=== PATIENT | female | born 1995 | race Caucasian/White ===

== ENCOUNTER 2017-10-08 08:31 | Emergency (ER) | payer BC, SELFPAY ==
[2017-10-08 08:32] VITALS: BP 156/79; PULSE 82; RESP 18; TEMP 36.6; O2SAT 100; BMI 39.5
--- NOTE | 2017-10-08 08:48 | CT_ITS ---
STUDY: CT ABDOMEN AND PELVIS WITH CONTRAST REASON FOR EXAM: Female, 22 years old. Umbilical pain. RADIATION DOSAGE (If Supplied By Facility): CTDIvol = ( 18.03 ) mGy, DLP = ( 1300.32 ) mGycm TECHNIQUE: Transaxial images were obtained from the dome of the diaphragm to the symphysis pubis without oral contrast. 100ml ml of Isovue 300 contrast was administered. Sagittal and coronal images were reconstructed. Individualized dose optimization techniques were used for this CT. COMPARISON: None. FINDINGS: Body wall soft tissues: No acute process. Osseous structures: No acute process. Inferior chest: No acute process. Hepatobiliary: Normal. Pancreas: No acute process. Spleen: Normal. Adrenal glands: Normal. Urogenital: Normal kidneys, symmetric nephrograms. Normal collecting systems, ureters, urinary bladder. Normal anteverted uterus and endometrial stripe. Normal ovaries and adnexa with no cul-de-sac free fluid. Pelvic floor and sidewalls and retroperitoneum: No mass or adenopathy. Vasculature: No acute process. Stomach: No acute process. Small bowel and mesentery: No acute process. Large bowel: No acute process. The appendix is well seen and normal. Free fluid or free air: None. CT/Abdomen/Pelvis W IV Cont ONLY IMPRESSION: Normal enhanced CT of the abdomen and pelvis. Electronically Signed: Alberto Pena, at 10:35 EDT Tel , Service support ,
--- NOTE | 2017-10-08 08:51 | ED.VISSUMM ---
- ER Visit Summary Date of Service: 10/08/17 Chief Complaint: [Abdominal pain] History of Present Illness: The patient is a 22 F [who presents the emergency department with abdominal pain. It started 2 weeks ago. It was worse with bending over and with movement. It is gradually worsened and has been constant since yesterday and she has had bloody drainage from her bellybutton. No fevers or chills no nausea or vomiting bowel movements have been normal. She has had no abdominal surgeries. She denies the possibility of and her last menstrual cycle was September 13 - September 17. She denies any urinary symptoms or vaginal discharge. She has a history of constipation and that is common and unchanged.] Physical Examination: [] WN WD NAD PERRL EOMI MMM NECK supple and nontender, no masses RRR no murmur rub or gallop, no peripheral edema, symmetric radial pulses CTAB no respiratory distress ABDOMEN is soft she has tenderness in the bilateral lower quadrants that is referred to the umbilicus there is purulent slightly bloody drainage from the umbilicus no surrounding erythema or swelling I am unable to appreciate where the purulence is coming from, normal bowel sounds, no distension, no rebound or guarding SKIN is warm and dry no rashes Alert and Oriented x3, CN II-XII in tact, no motor or sensory deficits, gait normal No lymphadenopathy Test Results: [] Emergency Department Course and Treatment: [Screening labs were obtained and CT with IV contrast was ordered to evaluate for deeper abscess or fistula. CT shows no evidence of abscess or fistula. Blood work was unremarkable. Patient will be treated with Bactrim and Keflex for an infection of the umbilicus soft tissue.] Treatment Plan: [] Disposition: [Discharge] Impression: [1. Umbilical local soft tissue infection] This note was generated with [employer] dictation software. It may contain incorrect words, spelling, and punctuation that were not noted in review of the chart prior to signing ED Disposition - Plan for ED Patient: Chief Complaint: Abd Pain Referrals: NOT,DEFINED [NON-STAFF] -
[2017-10-08] MEDS: 0.9% Normal Saline 1,000 ML 1000 ML IV (09:09)
[2017-10-08] MEDS: Morphine 4 MG/ML Syringe IV (09:09)
[2017-10-08 09:26] LABS: Absolute Lymphocyte Count 2.31 X10^3/ul (0.83-4.51); Absolute Neutrophil Count 6.7 X10^3/uL (2.0-7.7); Basophil# 0.07 X10^3/uL; Basophil% 0.7 % (0-1); Eosinophil# 0.38 X10^3/uL; Eosinophils% 3.6 % (0-5); Hematocrit 40.8 % (37-47); Hemoglobin 13.8 g/dl (12.0-15.0); Lymphocyte # 2.31 X10^3/ul (4.0); Lymphocyte % 21.8 % (19-41); Mean Corp Hgb Conc 33.8 g/gl (32-36); Mean Corpuscular Volume 82.9 fL (81-99); Mean Platelet Vol. 9.5 fl (6.2-12.0); Monocyte# 1.09 X10^3/uL; Monocyte% 10.3 % (0-10); Neutrophil # 6.73 X10^3/uL (2.7-7.7); Neutrophil % 63.4 % (47-70); POSITIVE COUNT NO; POSITIVE DIFFERENTIAL NO; POSITIVE MORPHOLOGY NO; Platelet Count 301 K/mm3 (150-450); RBC Distribution Width CV 13.5 % (11.6-14.6); RBC Distribution Width SD 40.3 fl (35.1-43.9); Red Blood Count 4.92 M/mm3 (4.2-5.4); White Blood Count 10.6 K/mm3 (4.4-11.0)
[2017-10-08 09:44] LABS: Bacteria 0 SEEN /hpf (None Seen); Mucous, Urine 0 SEEN /hpf (<or=2+); Red Blood Cells-Urine 0 SEEN /hpf (0-5); White Blood Cells 0 SEEN /hpf (0-5)
[2017-10-08 09:45] LABS: AST(SGOT) 12 U/L (15-37); Alanine Aminotransfer ALT/SGPT 23 U/L (13-56); Albumin, Serum 3.7 g/dL (3.2-5.0); Alkaline Phosphatase 155 U/L (45-117); Anion Gap 6 (5-15); BUN 20 mg/dL (7-18); BUN/Creat Ratio 27.3 RATIO (10-20); Calcium,Total 8.6 mg/dL (8.5-10.1); Chloride 107 mmol/L (98-107); Creatinine, Serum 0.73 mg/dL (0.55-1.02); EST Glomerular Filtration Rate 104 mL/min (>60); Est Glom Filt Rate - Afr Amer 126 mL/min (>60); Estimated Creatinine Clearance 120.91 ml/min; Globulin 3.8 g/dL (2.2-4.2); Glucose 83 mg/dL (74-106); Lipase 63 U/L (73-393); Potassium 3.6 mmol/L (3.5-5.1); Protein, Total 7.5 g/dL (6.4-8.2); Sodium Level 142 mmol/L (136-145)
[2017-10-08 09:46] LABS: Color, Urine Yellow (Yellow); Glucose, Dipstick Normal (Normal); Ketone-Dipstick 5 mg/dl (Negative); Leukocyte Esterase-Dipstick Negative /ul (Negative); Nitrite-Dipstick Negative (Negative); Occult Blood-Urine 10 /ul (Negative); Protein-Dipstick 15 mg/dl (Negative); Specific Gravity, Urine 1.025 (1.002-1.030); Urine Bilirubin Dipstick Negative (Negative); Urine Clarity Clear (Clear); Urine Urobilinogen Normal (Normal)
[2017-10-08 09:50] LABS: Internal QC Validated? YES +Cl - CLEAR BKGD; Pregnancy, Urine Negative Negative
[2017-10-08 09:55] LABS: Squamous Epithelial Cells - UA 0-5 SEEN /hpf (5-10)
--- NOTE | 2017-10-08 10:42 | ED.DEP ---
ED Disposition - Plan for ED Patient: Chief Complaint: Abd Pain Instructions: ED Infec Skin Cellulitis Prescriptions: Cephalexin [Keflex] 500 mg PO Q6 #40 capsule Smz/Tmp Ds [Bactrim Ds] 1 tablet PO BID #20 tablet Referrals: Lamin Olmos DO [STAFF PHYSICIAN] - 3-5 Days
[2017-10-08] MEDS: Cephalexin 250 MG Capsule 500 MG PO (10:54)
[2017-10-08] MEDS: Smz/Tmp Ds Tablet 1 TABLET PO (10:54)
[2017-10-08 11:11] VITALS: BP 142/69; PULSE 84; RESP 19; O2SAT 100
== END 2017-10-08 11:12 | disposition home or self-care (01) ==
PROVIDERS: Emergency Provider Emergency Medicine
DX: L08.9 Local infection of the skin and subcutaneous tissue, unspecified (principal); K59.00 Constipation, unspecified; E66.9 Obesity, unspecified
CPT/HCPCS: 74177; 80053; 81001; 81025; 83690; 85025; 87070; 87205; 96361; 96374; 99284; J7030; Q9967

== ENCOUNTER → 2017-12-30 07:51 | Outpatient (CLI) | payer BC, SELFPAY ==
--- NOTE | 2017-12-30 07:53 | US_ITS ---
STUDY: THYROID ULTRASOUND REASON FOR EXAM: Female, 22 years old. Thyromegaly TECHNIQUE: Ultrasound evaluation of the thyroid was performed with real-time and static baltazar-scale imaging. # of Images: 48 COMPARISON: None. FINDINGS: RIGHT LOBE: The right lobe of the thyroid gland measures 5.4 x 2.6 x 2.1 cm. There is a 82 echotexture. There are no demonstrated solid, cystic or complex lesions. LEFT LOBE: The left lobe of the thyroid gland measures 5.3 x 2.7 x 2.1 cm. There is a heterogeneous echotexture. There are no demonstrated solid, cystic or complex lesions. ISTHMUS: The isthmus measures 7 mm . The regional lymph nodes are normal. US/Thyroid IMPRESSION: Slightly enlarged thyroid gland, diffusely heterogeneous which can be seen with chronic thyroiditis. No significant nodules. Electronically Signed: Owen Lopez MD at 16:23 EDT , Service support ,
== END ==
PROVIDERS: Family Provider Internal Medicine; PCP Internal Medicine; Referring Provider Internal Medicine; Visit Provider Internal Medicine
DX: E01.0 Iodine-deficiency related diffuse (endemic) goiter (principal)
CPT/HCPCS: 76536

== ENCOUNTER 2020-02-09 09:27 | Emergency (ER) | payer BC, SELFPAY ==
[2020-02-09 09:29] VITALS: BP 158/94; PULSE 75; RESP 18; TEMP 36.3; O2SAT 99; BMI 44.8
[2020-02-09 10:39] LABS: hCG Titer Quant., Serum < 1 mIU/mL (1-3)
--- NOTE | 2020-02-09 11:59 | ED.DCSUM_ITS ---
History of Present Illness Chief Complaint: Vag Bld, Preg Detail of Chief Complaint: Home test, vaginal bleeding and cramping pain Onset: Today Context: Sudden Onset Timing: Continuous Quality: Cramping pain pelvic area Current Severity: Mild Maximum Severity: Mild Worsened by: Nothing Relieved by: Nothing Associated Symptoms: No associated symptoms Narrative: Patient is a 24-year-old G0, P0 female who had a home test that was positive a couple of days ago. Her last normal menstrual period was January 03 through January 08. She is sexually active. She does not use any form of control. She does not know her blood type. Significant other/'s blood type is B+. She denies lightheadedness. She denies urinary symptoms. She is on no medications. She states she does not have an ALTERNATIVE MEDICINE PRACTITIONER. She does have allergy to Bactrim. Prior similar symptoms: No Recent Illness/Hospitalization: No - Past Medical History (1) No significant past medical history Status: Acute Past Medical History - Allergies and Home Meds Allergies/Adverse Reactions: Allergies No Known Allergies Allergy (Verified 02/09/20 09:28) Primary Care Physician: Ernesto Dc MD [Primary Care Provider] - Prior records reviewed: No - No history of endometriosis, STI or cysts Surgical History: no surgical history Lives: Spouse/ Significant Other Smoking Status: Never smoker Alcohol: None Drugs: None Review of Systems General: Denies: Chills, Fever, Malaise ENT: Denies: Bilateral ear pain, Rhinorrhea, Sore throat Cardiovascular: Denies: Chest pain, Palpitations Respiratory: Denies: Dyspnea, Cough, Dyspnea on exertion Gastrointestinal: Reports: Abdominal pain. Denies: Nausea, Vomiting, Diarrhea Genitourinary: Denies: Dysuria, Hematuria, Frequency Musculoskeletal: Denies: Myalgias, Arthralgias, Neck pain, Back pain, Extremity Pain Skin: Denies: Rash, Wounds Neurological: Denies: Headache, Weakness Endocrine: Denies: Polyuria, Polydipsia Hematologic: Denies: Easy bruising, Easy bleeding Physical Exam Vital Signs/Narrative: Vital Signs Temp Pulse Resp BP Pulse Ox 02/09/20 09:29 97.3 F L 75 18 158/94 H 99 Inital Vital Signs reviewed: Yes General: Well nourished, Well developed, No Acute Distress Head: Normocephalic, Atraumatic Eyes: Perrl, EOMI ENT: Moist mucous membranes, No rhinorrhea Neck: Supple, Nontender Cardiovascular: Regular rate, Regular rhythm, No murmurs Respiratory: No distress, CTA bilaterally, Chest nontender Abdomen: Soft, Nontender, Nondistended, Normal bowel sounds, No masses : - - Sternal genitalia normal. Vaginal cervical mucosa normal. There is minimal amount of blood in the vaginal vault. The appearance of the cervix is consistent with a nonparous cervix. There is no enlargement of the uterus. There is no cervical motion tenderness. There is no adnexal mass, fullness Back: Nontender, Normal Inspection Extremities: Nontender, No edema Skin: Normal color, No rash Neurological: Alert, Oriented x3, Cranial nerves II-XII grossly intact, Normal Strength, Normal Sensation Psychological: Normal affect, Normal Mood Diagnostic/Tx/Re-eval Laboratory Results 02/09/20 02/09/20 10:03 10:03 HCG, Quant < 1 Blood Type O POSITIVE hCG is less than 1. Patient was informed that her home test may represent a false negative. - Medical Decision Making Quantitative hCG was obtained. Based on patient's dates she is at most 2 to 3 weeks gestation. Will obtain ABO Rh. Pelvic ultrasound. Prior to patient going for pelvic ultrasound the quantitative hCG returned at less than 1. Nurse is aware that a pelvic exam needs to be performed. There may be other reasons for her vaginal bleeding. With a negative quantitative hCG and a normal pelvic exam imaging was canceled. Patient was discharged with referral to ALTERNATIVE MEDICINE PRACTITIONER since she does not have an ALTERNATIVE MEDICINE PRACTITIONER. ED Disposition - Plan for ED Patient: Disposition: Home or Assisted Living Diagnosis: Abnormal vaginal bleeding Instructions: ED Bleed Irregular Vaginal Referrals: Ernesto Dc MD [Primary Care Provider] - Radha Wilkinson DO [STAFF PHYSICIAN] - 1 Week if not improving
[2020-02-09 13:12] VITALS: BP 148/90; PULSE 78; RESP 18; O2SAT 99
== END 2020-02-09 13:25 | disposition home or self-care (01) ==
PROVIDERS: Emergency Provider Emergency Medicine; PCP Family Medicine
DX: O20.9 Hemorrhage in early pregnancy, unspecified (principal); Z3A.00 Weeks of gestation of pregnancy not specified
CPT/HCPCS: 84702; 86900; 86901; 99283; A4216

== ENCOUNTER → 2020-03-13 08:58 | Outpatient (CLI) | payer BC, SELFPAY ==
[2020-03-13 10:59] LABS: Absolute Lymphocyte Count 2.05 X10^3/uL (0.83-4.51); Absolute Neutrophil Count 4.2 X10^3/uL (2.0-7.7); Basophil# 0.07 X10^3/uL; Eosinophil# 0.34 X10^3/uL; Eosinophils% 4.8 % (0-5); Hematocrit 43.9 % (37-47); Hemoglobin 13.7 g/dL (12.0-15.0); Lymphocyte # 2.05 X10^3/ul (4.0); Lymphocyte % 28.8 % (19-41); Mean Corp Hgb Conc 31.2 g/dL (32-36); Mean Corpuscular Hgb 26.1 pg (27.0-32.0); Mean Corpuscular Volume 83.6 fL (81-99); Mean Platelet Vol. 9.9 fl (6.2-12.0); Monocyte# 0.44 X10^3/uL; Monocyte% 6.2 % (0-10); NRBC Flagged by Analyzer 0 % (0-5); Neutrophil # 4.21 X10^3/uL (2.7-7.7); Neutrophil % 58.9 % (47-70); Platelet Count 329 K/mm3 (150-450); RBC Distribution Width CV 12.9 % (11.6-14.6); RBC Distribution Width SD 39.1 fl (35.1-43.9); Red Blood Count 5.25 M/mm3 (4.2-5.4); White Blood Count 7.1 K/mm3 (4.4-11.0)
[2020-03-13 11:02] LABS: ALB/GLOB Ratio 0.9 RATIO (0.9-2.4); AST(SGOT) 8 U/L (15-37); Alanine Aminotransfer ALT/SGPT 23 U/L (13-56); Albumin, Serum 3.5 g/dL (3.2-5.0); Alkaline Phosphatase 148 U/L (45-117); Anion Gap 6 (5-15); BUN 11 mg/dL (7-18); BUN/Creat Ratio 15.7 RATIO (10-20); Calcium,Total 8.7 mg/dL (8.5-10.1); Chloride 108 mmol/L (98-107); Cholesterol 194 mg/dL (200); EST Glomerular Filtration Rate 108 mL/min (>60); Est Glom Filt Rate - Afr Amer 130 mL/min (>60); Globulin 4.1 g/dL (2.2-4.2); Glucose 95 mg/dL (74-106); High Density Lipoprotein 37 mg/dL; Protein, Total 7.6 g/dL (6.4-8.2); Sodium Level 138 mmol/L (136-145); T4 Free Direct 1.24 ng/dL (0.76-1.46); Thyroid Stim Hormone (TSH) 1.51 uIU/mL (0.358-3.74); Triglycerides 109 mg/dL; Very Low Density Lipoprotein 22 mg/dL (5-40)
[2020-03-27 20:08] LABS: Thyroid Stim Immunoglob 2.34 IU/L (0.00-0.55)
[2020-03-27 20:41] LABS: Anti-Thyroglobulin AB 8.3 IU/mL (0.0-0.9); Thyroglobulin RIA 36 ng/mL (.); Thyroid Peroxidase AB 335 IU/mL (0-34)
== END ==
PROVIDERS: PCP Family Medicine; Visit Provider Family Medicine
DX: E66.01 Morbid (severe) obesity due to excess calories (principal); Z86.39 Personal history of other endocrine, nutritional and metabolic disease
CPT/HCPCS: 36415; 80053; 80061; 84432; 84439; 84443; 84445; 85025; 86376; 86800

== ENCOUNTER → 2020-03-21 07:51 | Outpatient (CLI) | payer BC, SELFPAY ==
--- NOTE | 2020-03-21 08:01 | US_ITS ---
STUDY: THYROID ULTRASOUND REASON FOR EXAM: Female, 24 years old. Thyromegaly TECHNIQUE: Ultrasound evaluation of the thyroid was performed with real-time and static baltazar-scale imaging. COMPARISON: None. FINDINGS: RIGHT LOBE: The right lobe of the thyroid gland is enlarged and measures 6.1 cm x 2.7 cm x 2.8 cm. There is a heterogeneous echotexture. There are no demonstrated solid, cystic or complex lesions. LEFT LOBE: The left lobe of the thyroid gland is enlarged and measures 6.2 cm x 2.4 cm x 2.0 cm. There is a heterogeneous echotexture. There is an 8 mm x 7 mm x 5 mm hypoechoic solid nodule in the midpole of the left lobe. There are nodular vascularity is seen. ISTHMUS: The isthmus measures 8 mm. There is a 1.1 cm x 1.4 cm x 0.8 cm hypoechoic solid nodule along the left side of the isthmus. Incidental note is made of a 1.7 cm x 0.6 cm x 0.5 cm right cervical lymph node. US/Thyroid IMPRESSION: Heterogeneous enlargement of both lobes of the thyroid gland. 8 mm x 7 mm x 5 mm solid nodule in the midpole of the left lobe of the thyroid. Enlargement of the isthmus with a solid nodule along the left side of the isthmus. Electronically Signed: Manuel Stubbs, at 13:49 EST , Service support ,
== END ==
PROVIDERS: PCP Family Medicine; Referring Provider Family Medicine; Visit Provider Family Medicine
DX: E01.0 Iodine-deficiency related diffuse (endemic) goiter (principal)
CPT/HCPCS: 76536

== ENCOUNTER → 2020-04-04 12:03 | Outpatient (CLI) | payer BC, SELFPAY ==
--- NOTE | 2020-04-04 08:00 | ASPS_PTH ---
PATIENT: JOHNIE MCCALL LOC: [facility] U#:[id number] AGE/SX: 29/F ROOM: RE04/04/[address]: Dr. Peewee Horn MD : 1995 BED: DIS: SPEC #: [id number] RECD: 04/04/20 11:53 STATUS: MANUEL REPark #: [id number] MARY: 04/04/20 08:[address]: Peewee Horn DEPT: CYTOLOGY RECD BY: Shanae Camarena ENTERED: 04/04/20 12:24 SP TYPE: ASPIRATION OTHR DR: Dr. Ernesto Dc MD Tissues: Thyroid isthmus Procedures: Special Stain Group II Cytology Other HEADER OPERATION: Isthmus biopsy PRE-OP DIAGNOSIS: Multiple thyroid nodules TISSUE SUBMITTED: Isthmus slides x6 DIAGNOSIS CYTOLOGY Fine needle aspiration, thyroid isthmus (smears): Rare benign follicular cells Polymorphic lymphocytes present. See comment. AM:yves 04/05/2020 COMMENT Only very rare benign follicular cells are identified. The specimen primarily consists of polymorphic lymphocytes. The differential diagnosis includes chronic inflammation of thyroid gland versus lymph node tissue. Clinical correlation is suggested. Case has been reviewed in consultation with Dr. Carlson who concurs with the above diagnosis. IDC:SJ CYTOLOGY STUDY Slides are reviewed. CYTOLOGY GROSS Received are six smears labeled with the patient's name and designated per the requisition as isthmus. Submitted for staining. / yves 04/04/2020 TC:5 CPT: 25930
[2020-04-04 08:41] VITALS: BMI 45.6
== END ==
PROVIDERS: PCP Family Medicine; Referring Provider Surgery; Visit Provider Surgery
DX: E04.1 Nontoxic single thyroid nodule (principal)
CPT/HCPCS: 88161; 88313

== ENCOUNTER → 2020-05-13 16:28 | Outpatient (CLI) | payer BC, SELFPAY ==
[2020-04-04 08:41] VITALS: BMI 45.6
== END ==
LOC: MFPLAB 16:29 → LABSPEC 16:30
PROVIDERS: PCP Family Medicine; Referring Provider Family Medicine; Visit Provider Family Medicine
DX: U07.1 COVID-19 (principal)
CPT/HCPCS: 87635; U0005; U0003

== ENCOUNTER → 2020-07-19 10:57 | Outpatient (CLI) | payer BC, SELFPAY ==
[2020-07-19 10:07] VITALS: BMI 45.6
[2020-07-19 12:20] LABS: Hemoglobin A1c 5.6 % (3.8-5.6)
[2020-07-19 13:59] LABS: ALB/GLOB Ratio 0.9 RATIO (0.9-2.4); AST(SGOT) 21 U/L (15-37); Alanine Aminotransfer ALT/SGPT 41 U/L (13-56); Albumin, Serum 3.3 g/dL (3.2-5.0); Alkaline Phosphatase 116 U/L (45-117); Anion Gap 6 (5-15); BUN 14 mg/dL (7-18); BUN/Creat Ratio 20.1 RATIO (10-20); Calcium,Total 8.8 mg/dL (8.5-10.1); Chloride 108 mmol/L (98-107); Cholesterol 143 mg/dL (200); EST Glomerular Filtration Rate 108 mL/min (>60); Est Glom Filt Rate - Afr Amer 131 mL/min (>60); Estradiol 81.6 pg/mL; Follicle Stimulating Hormone 4.2 mIU/mL; Globulin 3.8 g/dL (2.2-4.2); Glucose 103 mg/dL (74-106); High Density Lipoprotein 29 mg/dL; Luteinizing Hormone 8.7 mIU/mL; Potassium 3.7 mmol/L (3.5-5.1); Prolactin 22.8 ng/mL; Protein, Total 7.1 g/dL (6.4-8.2); Sodium Level 139 mmol/L (136-145); T4 Free Direct 1.48 ng/dL (0.76-1.46); Thyroid Stim Hormone (TSH) 1.57 uIU/mL (0.358-3.74); Triglycerides 160 mg/dL; Very Low Density Lipoprotein 32 mg/dL (5-40)
[2020-07-24 09:08] LABS: Testosterone, % Free 1.96 % (0.50-2.80); Testosterone, Free 0.67 ng/dL (0.10-0.85)
[2020-07-24 12:28] LABS: Testosterone, Total 34 ng/dL (8-48)
[2020-07-24 12:44] LABS: 17-Hydroxyprogesterone 101 ng/dL (.)
== END ==
PROVIDERS: PCP Family Medicine; Referring Provider Internal Medicine Endocrinology, Diabetes & Metabolism; Visit Provider Internal Medicine Endocrinology, Diabetes & Metabolism
DX: E06.3 Autoimmune thyroiditis (principal); E28.2 Polycystic ovarian syndrome; R73.9 Hyperglycemia, unspecified
CPT/HCPCS: 36415; 80053; 80061; 82627; 82670; 83001; 83002; 83036; 83498; 84146; 84402; 84403; 84439; 84443; 82626

== ENCOUNTER → 2020-10-25 | Outpatient (CLI) | payer BC, SELFPAY ==
[2020-07-19 10:07] VITALS: BMI 45.6
[2020-10-29 05:07] LABS: Chlamydia By Nucleic Acid AMP Negative (Negative)
[2020-10-30 11:28] LABS: HPV Reflexed? NOT INDICATED
[2020-10-30 11:29] LABS: Gonococcus By Nucleic Acid AMP Negative (Negative)
== END | disposition home or self-care (01) ==
LOC: LABSPEC 11:09
PROVIDERS: PCP Family Medicine; Visit Provider Obstetrics & Gynecology
DX: Z11.3 Encounter for screening for infections with a predominantly sexual mode of transmission (principal); Z12.4 Encounter for screening for malignant neoplasm of cervix
CPT/HCPCS: 87491; 87591; 88175; G0145

== ENCOUNTER → 2020-11-12 12:02 | Outpatient (CLI) | payer BC, SELFPAY ==
[2020-11-12 13:35] LABS: Absolute Neutrophil Count 7.5 X10^3/uL (2.0-7.7); Basophil% 0.9 % (0-1); Eosinophil# 0.26 X10^3/uL; Eosinophils% 2.4 % (0-5); Hematocrit 38.5 % (37-47); Hemoglobin 12.8 g/dL (12.0-15.0); Lymphocyte % 20.9 % (19-41); Mean Corp Hgb Conc 33.2 g/dL (32-36); Mean Corpuscular Hgb 26.9 pg (27.0-32.0); Mean Corpuscular Volume 81.1 fL (81-99); Mean Platelet Vol. 10.1 fl (6.2-12.0); Monocyte# 0.81 X10^3/uL; Monocyte% 7.4 % (0-10); NRBC Flagged by Analyzer 0 % (0-5); Neutrophil # 7.48 X10^3/uL (2.7-7.7); Neutrophil % 68.1 % (47-70); Platelet Count 326 K/mm3 (150-450); RBC Distribution Width CV 13.2 % (11.6-14.6); RBC Distribution Width SD 38.6 fl (35.1-43.9); Red Blood Count 4.75 M/mm3 (4.2-5.4)
[2020-11-12 14:25] LABS: T4 Free Direct 1.21 ng/dL (0.76-1.46); Thyroid Stim Hormone (TSH) 1.32 uIU/mL (0.358-3.74)
[2020-11-12 14:53] LABS: HIV - WCH Non-Reactive (Nonreactive); Hepatitis B Surface Antigen Non-Reactive (Nonreactive); Hepatitis C Antibody Non-Reactive (Nonreactive); Rubella IgG Reactive (Nonreactive); Syphilis Antibodies Non-reactive
== END ==
PROVIDERS: PCP Family Medicine; Visit Provider Obstetrics & Gynecology
DX: Z34.81 Encounter for supervision of other normal pregnancy, first trimester (principal)
CPT/HCPCS: 36415; 84439; 84443; 85025; 86703; 86762; 86780; 86803; 87077; 87086; 87088; 87186; 87340

== ENCOUNTER → 2020-12-04 12:07 | Outpatient (CLI) | payer BC, SELFPAY | PROVIDERS: PCP Family Medicine; Referring Provider Obstetrics & Gynecology; Visit Provider Obstetrics & Gynecology | DX: Z03.818 Encounter for observation for suspected exposure to other biological agents ruled out (principal) | CPT/HCPCS: 87635; C9803; U0005; U0003 ==

== ENCOUNTER → 2020-12-13 11:04 | Outpatient (CLI) | payer BC, SELFPAY | PROVIDERS: PCP Family Medicine; Visit Provider Obstetrics & Gynecology | DX: G12.9 Spinal muscular atrophy, unspecified (principal); Z14.1 Cystic fibrosis carrier | CPT/HCPCS: 36415 ==

== ENCOUNTER → 2021-02-21 10:17 | Outpatient (CLI) | payer BC, SELFPAY ==
[2021-02-21 11:31] LABS: Hematocrit 35.3 % (37-47); Hemoglobin 12.1 g/dL (12.0-15.0); Mean Corp Hgb Conc 34.3 g/dL (32-36); Mean Corpuscular Hgb 28.9 pg (27.0-32.0); Mean Corpuscular Volume 84.2 fL (81-99); Mean Platelet Vol. 9.9 fl (6.2-12.0); Platelet Count 330 K/mm3 (150-450); RBC Distribution Width CV 13.8 % (11.6-14.6); RBC Distribution Width SD 41.9 fl (35.1-43.9); Red Blood Count 4.19 M/mm3 (4.2-5.4); White Blood Count 13.5 K/mm3 (4.4-11.0)
[2021-02-21 12:12] LABS: Glucose Challenge Gest 1H 50g 149 mg/dL (70-140); T4 Free Direct 1.03 ng/dL (0.76-1.46); Thyroid Stim Hormone (TSH) 0.75 uIU/mL (0.358-3.74)
== END ==
PROVIDERS: PCP Family Medicine; Visit Provider Obstetrics & Gynecology
DX: Z34.82 Encounter for supervision of other normal pregnancy, second trimester (principal)
CPT/HCPCS: 36415; 82950; 84439; 84443; 85027

== ENCOUNTER → 2021-02-26 08:36 | Outpatient (CLI) | payer BC, SELFPAY ==
[2021-02-26 09:27] LABS: Glucose GTT-Gestation. Fasting 99 mg/dL (<105)
[2021-02-26 10:17] LABS: Glucose GTT-Gestational 1 Hr 237 mg/dL (<190)
[2021-02-26 11:23] LABS: Glucose GTT-Gestational 2 Hr 216 mg/dL (<165)
== END ==
PROVIDERS: PCP Family Medicine; Visit Provider Obstetrics & Gynecology
DX: O24.912 Unspecified diabetes mellitus in pregnancy, second trimester (principal); Z3A.00 Weeks of gestation of pregnancy not specified
CPT/HCPCS: 36415; 82951; 82952

== ENCOUNTER 2021-04-04 10:35 | Outpatient (CLI) | payer BC, SELFPAY ==
[2021-04-04 11:55] LABS: Hematocrit 34.7 % (37-47); Hemoglobin 11.3 g/dL (12.0-15.0); Mean Corp Hgb Conc 32.6 g/dL (32-36); Mean Corpuscular Hgb 27.4 pg (27.0-32.0); Mean Corpuscular Volume 84.2 fL (81-99); Mean Platelet Vol. 10.1 fl (6.2-12.0); Platelet Count 325 K/mm3 (150-450); RBC Distribution Width CV 13.4 % (11.6-14.6); RBC Distribution Width SD 41.3 fl (35.1-43.9); Red Blood Count 4.12 M/mm3 (4.2-5.4); White Blood Count 10.2 K/mm3 (4.4-11.0)
[2021-04-04 12:02] LABS: ALB/GLOB Ratio 0.6 RATIO (0.9-2.4); AST(SGOT) 8 U/L (15-37); Alanine Aminotransfer ALT/SGPT 14 U/L (13-56); Albumin, Serum 2.6 g/dL (3.2-5.0); Alkaline Phosphatase 109 U/L (45-117); Anion Gap 8 (5-15); BUN 13 mg/dL (7-18); BUN/Creat Ratio 20.2 RATIO (10-20); Calcium,Total 9.3 mg/dL (8.5-10.1); Chloride 105 mmol/L (98-107); Creatinine, Serum 0.64 mg/dL (0.55-1.02); EST Glomerular Filtration Rate 118 mL/min (>60); Est Glom Filt Rate - Afr Amer 142 mL/min (>60); Globulin 4.2 g/dL (2.2-4.2); Glucose 113 mg/dL (74-106); Potassium 3.5 mmol/L (3.5-5.1); Protein, Total 6.8 g/dL (6.4-8.2); Sodium Level 138 mmol/L (136-145)
== END 2021-04-04 23:59 | disposition home or self-care (01) ==
PROVIDERS: PCP Family Medicine; Visit Provider Obstetrics & Gynecology
DX: O99.891 Other specified diseases and conditions complicating pregnancy (principal); R21 Rash and other nonspecific skin eruption; Z3A.00 Weeks of gestation of pregnancy not specified
CPT/HCPCS: 36415; 80053; 85027

== ENCOUNTER 2021-05-09 11:11 | Outpatient (CLI) | payer BC, SELFPAY ==
[2021-05-09 13:54] LABS: Group B Strep DNA By PCR POSITIVE (Negative); Probe Check PASS
== END 2021-05-09 23:59 | disposition home or self-care (01) ==
LOC: LABSPEC 11:13
PROVIDERS: PCP Family Medicine; Visit Provider Obstetrics & Gynecology
DX: Z36.85 Encounter for antenatal screening for Streptococcus B (principal)
CPT/HCPCS: 87653

== ENCOUNTER 2021-05-16 10:00 | Inpatient (IN) | payer BC, SELFPAY ==
[2021-05-16] VITALS (43 sets, daily range): BP systolic 128–176; BP diastolic 64–95; PULSE 71–93; RESP 14; TEMP 36.2–37.3; O2SAT 97–100; BMI 46.3
--- NOTE | 2021-05-16 10:27 | PCM.HP.BLA ---
History and Physical Date of Admission: 05/16/21 Chief complaint: Gestational hypertension History of present illness: 26-year-old G1, P0 at 37 weeks and 4 days with ERIC 06/02/2021 by LMP arrives from the office with gestational hypertension in need of induction of labor at term. Denies headache, visual changes, chest pain, shortness of breath, nausea vomiting, right upper quadrant pain. Patient states good movement. is complicated by GDM A2, gestational hypertension, GBS positive Obstetrical history: G1: Current Past medical history: GDM A2, gestational pretension Medications: Levemir 15 units every morning 10 units nightly Past surgical history: Tonsils and adenoids, wisdom teeth extraction Allergies: Bactrim Social history: Denies smoking, alcohol use, drug use Family history: Denies history DVT or PE Review of systems: Besides above pertinent positives a full review of systems was performed and found to be negative Physical exam: Vital signs: Blood pressure 148/90 General: Normal-appearing no acute distress HEENT: Normocephalic/atraumatic no cervical of adenopathy Cardiac/respiratory: No success muscles, nonlabored breathing Abdomen: Soft, nontender, nondistended Pelvic exam: Cervical exam 1 cm thick and high Extremities: No peripheral edema normal peripheral pulses, negative clonus. DTRs +2 Psych: Normal affect normal demeanor nonpressured speech Labs: Pending Assessment plan: 26-year-old G1, P0 at 37 weeks and 4 days with newly diagnosed gestational hypertension asymptomatic. Labs pending, HELLP labs ordered. Admit labor and delivery CEFM GBS positive: For penicillin Induction of labor via Cytotec 25 mcg every 4 hours vaginally Gestational hypertension: Labs pending, will continue to monitor blood pressures and treat appropriately GDM A2: We will continue to monitor blood sugars and treat appropriately Routine orders
[2021-05-16] MEDS: Lactated Ringers 1,000 ML 50 ML IV (11:05)
[2021-05-16] MEDS: Labetalol (Prefilled) 20 MG/4 ML IV (11:05)
[2021-05-16 11:24] LABS: Hematocrit 33.6 % (37-47); Hemoglobin 11.1 g/dL (12.0-15.0); Mean Corpuscular Hgb 26.5 pg (27.0-32.0); Mean Corpuscular Volume 80.2 fL (81-99); Mean Platelet Vol. 10.8 fl (6.2-12.0); Platelet Count 280 K/mm3 (150-450); RBC Distribution Width CV 13.8 % (11.6-14.6); RBC Distribution Width SD 39.9 fl (35.1-43.9); Red Blood Count 4.19 M/mm3 (4.2-5.4)
[2021-05-16] MEDS: miSOPROStol 25 MCG TABLET VAGINAL ×3 (11:53→20:19)
[2021-05-16] MEDS: Magnesium Sulfate 4gm/100mL 4 GM/100 ML IV.SOLN. IV (12:05)
[2021-05-16 12:07] LABS: AST(SGOT) 14 U/L (15-37); Alanine Aminotransfer ALT/SGPT 14 U/L (13-56); Creatinine, Serum 0.81 mg/dL (0.55-1.02); EST Glomerular Filtration Rate 90 mL/min (>60); Est Glom Filt Rate - Afr Amer 109 mL/min (>60); Estimated Creatinine Clearance 105.24 ml/min; Uric Acid 5.9 mg/dL (2.6-6.0)
--- NOTE | 2021-05-16 12:11 | PCM.PN.OB ---
Subjective Subjective Patient remains asymptomatic. Denies headache, visual changes, chest pain, shortness of breath, nausea vomiting, right upper quadrant pain. Objective Data Objective Data Vital Signs: Vital Signs Temp Pulse BP 99.0 F 81 157/86 H 05/16/21 11:48 05/16/21 12:07 05/16/21 12:07 Weight: 304 lb 14.389 oz Body Mass Index (BMI) 46.3 Lab / Micro Data Result Diagrams: 05/16/21 11:00 05/16/21 11:00 Labs: Laboratory Results - last 24 hr 05/16/21 11:00: WBC 8.0, RBC 4.19 L, Hgb 11.1 L, Hct 33.6 L, MCV 80.2 L, MCH 26.5 L, MCHC 33.0, RDW Std Deviation 39.9, RDW Coeff of Chandana 13.8, Plt Count 280, MPV 10.8 05/16/21 11:00: Creatinine 0.81, Estim Creat Clear Calc 105.24, Est GFR (MDRD) Af Amer 109, Est GFR (MDRD) Non-Af 90, Uric Acid 5.9, AST 14 L, ALT 14 Micro: Microbiology 05/16/21 11:15 Nasal Secretion SARS-CoV-2 Antigen (Rapid) - Final Physical Exam Const alert, oriented x3, no apparent distress, average body habitus, healthy appearing and well nourished HEENT normocephalic and moist oral mucous membranes Head and Scalp: atraumatic Face and Sinus: normal facial exam Eyes PERRL Neck full ROM Resp normal respiratory effort, no retractions and no use of accessory muscles GI GI Narrative: Soft, nontender, gravid Extremity normal to inspection and full ROM Psych mental status grossly normal, affect normal, speech normal and activity/motor behavior normal Assessment & Plan (1) : PLAN: Called with severe range blood pressures treated with labetalol 20 mg IV. Repeat blood pressures nonsevere range. Patient remains asymptomatic. Now diagnosed with preeclampsia with severe features based on severe range blood pressures. Mag 6 g bolus at 2 g an hour started. Will start maintenance labetalol 200 mg p.o. twice daily. Educated patient on findings and new diagnosis of preeclampsia with severe features. Educated on magnesium, patient states understanding. We will continue Cytotec induction
[2021-05-16 12:15] LABS: Bacteria 0 SEEN /hpf (None Seen); Red Blood Cells-Urine 0 SEEN /hpf (0-5)
[2021-05-16 12:19] LABS: Color, Urine Yellow (Yellow); Glucose, Dipstick Normal (Normal); Ketone-Dipstick 50 mg/dl (Negative); Leukocyte Esterase-Dipstick 25 /ul (Negative); Nitrite-Dipstick Negative (Negative); Occult Blood-Urine Negative /ul (Negative); Protein-Dipstick 100 mg/dl (Negative); Specific Gravity, Urine 1.025 (1.002-1.030); Urine Bilirubin Dipstick Negative (Negative); Urine Clarity Sl. Cloudy (Clear); Urine Urobilinogen Normal (Normal)
[2021-05-16] MEDS: Magnesium Sulfate 4gm/100mL 2 GM/50 ML IV.SOLN. IV (12:26)
[2021-05-16 12:31] LABS: Mucous, Urine 1+ /hpf (<or=2+); Squamous Epithelial Cells - UA 0-5 SEEN /hpf (5-10); White Blood Cells 0-5 SEEN /hpf (0-5)
[2021-05-16 12:35] LABS: Bedside Glucose 109 mg/dL (74-106)
[2021-05-16 12:41] LABS: Protein, Urine (Random) 201.9 mg/dL (<11.9); Protein:Creat Ratio 673 mg/g CRE (0-200)
[2021-05-16] MEDS: Magnesium Sulfate 20 GM/500 ML BAG IV ×2 (12:42→22:21)
[2021-05-16 13:02] LABS: Rubella IgG Reactive (Nonreactive); Syphilis Antibodies Non-reactive
[2021-05-16 13:48] LABS: HIV - WCH Non-Reactive (Nonreactive)
[2021-05-16] MEDS: Labetalol 200 MG Tablet PO ×2 (13:49→22:22)
[2021-05-16 13:56] LABS: Bedside Glucose 105 mg/dL (74-106)
--- NOTE | 2021-05-16 17:12 | PN.OBGYN_ITS ---
Subjective Subjective No complaints denies headache, visual changes, chest pain, shortness of breath, nausea vomiting, right upper quadrant pain. Objective Data Objective Data Vital Signs: Vital Signs Temp Pulse Resp BP Pulse Ox 99.2 F H 82 14 139/82 H 100 05/16/21 16:04 05/16/21 17:09 05/16/21 13:40 05/16/21 17:09 05/16/21 17:09 Oxygen Delivery Method Room Air Weight: 304 lb 14.389 oz Body Mass Index (BMI) 46.3 Intake & Output: Intake and Output for Last 24 Hours 05/14/21 05/15/21 05/16/21 23:59 23:59 23:59 Intake Total 509.75 / 509.75 Output Total 300 / 300 Balance 209.75 / 209.75 Lab / Micro Data Result Diagrams: 05/16/21 11:00 05/16/21 11:00 Labs: Laboratory Results - last 24 hr 05/16/21 11:00: WBC 8.0, RBC 4.19 L, Hgb 11.1 L, Hct 33.6 L, MCV 80.2 L, MCH 26.5 L, MCHC 33.0, RDW Std Deviation 39.9, RDW Coeff of Chandana 13.8, Plt Count 280, MPV 10.8 05/16/21 11:00: Creatinine 0.81, Estim Creat Clear Calc 105.24, Est GFR (MDRD) Af Amer 109, Est GFR (MDRD) Non-Af 90, Uric Acid 5.9, AST 14 L, ALT 14 05/16/21 11:00: Blood Type O POSITIVE, Antibody Screen NEGATIVE 05/16/21 12:00: U Random Total Protein 201.9 H, Urine Creatinine 300.00, Protein/Creatinin Ratio 673 H 05/16/21 12:00: Urine Color Yellow, Urine Clarity Sl. Cloudy, Urine pH 6.0, Ur Specific [place] 1.025, Urine Protein 100 H, Urine Glucose (UA) Normal, Urine Ketones 50 H, Urine Occult Blood Negative, Urine Nitrite Negative, Urine Bilirubin Negative, Urine Urobilinogen Normal, Ur Leukocyte Esterase 25 H, Urine RBC 0 SEEN, Urine WBC 0-5 SEEN, Ur Squamous Epith Cells 0-5 SEEN, Urine Bacteria 0 SEEN, Urine Mucus 1+ 05/16/21 12:00: Syphilis Total Ab Non-reactive, Rubella IgG Antibody Reactive 05/16/21 12:00: HIV 1&2 Antibody Non-Reactive 05/16/21 12:32: POC Glucose 109 H 05/16/21 13:52: POC Glucose 105 Micro: Microbiology 05/16/21 11:15 Nasal Secretion SARS-CoV-2 Antigen (Rapid) - Final Physical Exam Const alert, oriented x3, no apparent distress, average body habitus, healthy appearing and well nourished HEENT normocephalic and moist oral mucous membranes Head and Scalp: atraumatic Face and Sinus: normal facial exam Eyes PERRL Neck full ROM Resp normal respiratory effort, no retractions and no use of accessory muscles GI GI Narrative: Soft, nontender, gravid Extremity normal to inspection, full ROM and no clubbing, cyanosis or edema Psych mental status grossly normal, affect normal, speech normal and activity/motor behavior normal Assessment & Plan (1) : PLAN: Patient seen and examined. Remains asymptomatic. Blood pressures remain nonsevere range. We will continue current management
[2021-05-16 17:21] LABS: Bedside Glucose 97 mg/dL (74-106)
[2021-05-16] MEDS: Penicillin G 3,000,000 Units 50 ML 100 UNITS IV ×2 (17:38→22:17)
--- NOTE | 2021-05-16 19:33 | NURSING ---
see QS for vitals
--- NOTE | 2021-05-16 20:13 | NURSING ---
vitals on QS
[2021-05-16] MEDS: Mag Hydrox/Al Hydrox/Simeth 30 ML UDC PO (21:13)
[2021-05-16 21:16] LABS: Bedside Glucose 145 mg/dL (74-106)
[2021-05-16] MEDS: 0.9% Saline Lock 10 ML Syringe IV (22:10)
[2021-05-16] MEDS: Dext 5%-0.45% NS 1,000 ML 125 ML IV (22:10)
--- NOTE | 2021-05-16 22:16 | NURSING ---
Vitals in QS
[2021-05-16 22:36] LABS: Bedside Glucose 142 mg/dL (74-106)
--- NOTE | 2021-05-16 23:22 | NURSING ---
vitals in QS
[2021-05-16 23:56] LABS: Bedside Glucose 132 mg/dL (74-106)
[2021-05-17] VITALS (50 sets, daily range): BP systolic 119–143; BP diastolic 60–89; PULSE 66–87; RESP 12–16; TEMP 36.2–37.1; O2SAT 16–100
[2021-05-17] MEDS: miSOPROStol 25 MCG TABLET VAGINAL ×2 (00:21→04:30)
[2021-05-17 00:27] LABS: Magnesium 5.6 mg/dL (1.6-2.6)
[2021-05-17 00:31] LABS: Bedside Glucose 141 mg/dL (74-106)
[2021-05-17 01:21] LABS: Bedside Glucose 146 mg/dL (74-106)
[2021-05-17] MEDS: Penicillin G 3,000,000 Units 50 ML 100 UNITS IV ×5 (02:23→20:06)
[2021-05-17 02:36] LABS: Bedside Glucose 136 mg/dL (74-106)
[2021-05-17 03:26] LABS: Bedside Glucose 111 mg/dL (74-106)
[2021-05-17 04:21] LABS: Bedside Glucose 117 mg/dL (74-106)
[2021-05-17 05:20] LABS: Bedside Glucose 107 mg/dL (74-106)
[2021-05-17] MEDS: Dext 5%-0.45% NS 1,000 ML 125 ML IV ×3 (06:14→21:36)
[2021-05-17 06:31] LABS: Bedside Glucose 93 mg/dL (74-106)
--- NOTE | 2021-05-17 06:49 | NURSING ---
This RN reviewed and agreed with Edmond RN charting.
[2021-05-17 07:26] LABS: Bedside Glucose 104 mg/dL (74-106)
[2021-05-17] MEDS: Magnesium Sulfate 20 GM/500 ML BAG IV ×2 (07:58→16:54)
[2021-05-17 08:15] LABS: Bedside Glucose 90 mg/dL (74-106)
[2021-05-17 09:26] LABS: Bedside Glucose 113 mg/dL (74-106)
[2021-05-17] MEDS: 0.9% Normal Saline Single 100 ML IV.SOLN. INTRA-UTER (09:40)
--- NOTE | 2021-05-17 09:48 | PCM.PN.OB ---
Subjective Subjective No overnight complaints. Pain well controlled Objective Data Objective Data Vital Signs: Vital Signs Temp Pulse Resp BP Pulse Ox 98.4 F 82 16 138/89 H 99 05/17/21 09:00 05/17/21 09:09 05/17/21 09:00 05/17/21 09:09 05/17/21 09:08 Oxygen Delivery Method Room Air Weight: 304 lb 14.389 oz Body Mass Index (BMI) 46.3 Intake & Output: Intake and Output for Last 24 Hours 05/15/21 05/16/21 05/17/21 23:59 23:59 23:59 Intake Total 1425.75 / 1425.75 2847.87 / 2847.87 Output Total 700 / 700 2100 / 2100 Balance 725.75 / 725.75 747.87 / 747.87 Lab / Micro Data Result Diagrams: 05/16/21 11:00 05/16/21 11:00 Labs: Laboratory Results - last 24 hr 05/16/21 11:00: WBC 8.0, RBC 4.19 L, Hgb 11.1 L, Hct 33.6 L, MCV 80.2 L, MCH 26.5 L, MCHC 33.0, RDW Std Deviation 39.9, RDW Coeff of Chandana 13.8, Plt Count 280, MPV 10.8 05/16/21 11:00: Creatinine 0.81, Estim Creat Clear Calc 105.24, Est GFR (MDRD) Af Amer 109, Est GFR (MDRD) Non-Af 90, Uric Acid 5.9, AST 14 L, ALT 14 05/16/21 11:00: Blood Type O POSITIVE, Antibody Screen NEGATIVE 05/16/21 12:00: U Random Total Protein 201.9 H, Urine Creatinine 300.00, Protein/Creatinin Ratio 673 H 05/16/21 12:00: Urine Color Yellow, Urine Clarity Sl. Cloudy, Urine pH 6.0, Ur Specific [place] 1.025, Urine Protein 100 H, Urine Glucose (UA) Normal, Urine Ketones 50 H, Urine Occult Blood Negative, Urine Nitrite Negative, Urine Bilirubin Negative, Urine Urobilinogen Normal, Ur Leukocyte Esterase 25 H, Urine RBC 0 SEEN, Urine WBC 0-5 SEEN, Ur Squamous Epith Cells 0-5 SEEN, Urine Bacteria 0 SEEN, Urine Mucus 1+ 05/16/21 12:00: Syphilis Total Ab Non-reactive, Rubella IgG Antibody Reactive 05/16/21 12:00: HIV 1&2 Antibody Non-Reactive 05/16/21 12:32: POC Glucose 109 H 05/16/21 13:52: POC Glucose 105 05/16/21 17:14: POC Glucose 97 05/16/21 21:04: POC Glucose 145 H 05/16/21 22:07: POC Glucose 142 H 05/16/21 23:14: POC Glucose 132 H 05/16/21 23:45: Magnesium 5.6 H* 05/17/21 00:17: POC Glucose 141 H 05/17/21 01:12: POC Glucose 146 H 05/17/21 02:23: POC Glucose 136 H 05/17/21 03:16: POC Glucose 111 H 05/17/21 04:16: POC Glucose 117 H 05/17/21 05:15: POC Glucose 107 H 05/17/21 06:19: POC Glucose 93 05/17/21 07:11: POC Glucose 104 05/17/21 08:06: POC Glucose 90 05/17/21 09:05: POC Glucose 113 H Micro: Microbiology 05/16/21 11:15 Nasal Secretion SARS-CoV-2 Antigen (Rapid) - Final Physical Exam Const alert, oriented x3, no apparent distress, average body habitus, healthy appearing and well nourished HEENT normocephalic and moist oral mucous membranes Head and Scalp: atraumatic Face and Sinus: normal facial exam Eyes PERRL Neck full ROM Resp normal respiratory effort, no retractions and no use of accessory muscles GI GI Narrative: Soft, nontender, gravid Narrative: Cervical exam: Closed thick and high. Mckeon bulb placement attempted, failed. AROM attempted, failed Extremity normal to inspection, full ROM and no clubbing, cyanosis or edema Psych mental status grossly normal, affect normal, speech normal and activity/motor behavior normal Assessment & Plan (1) : PLAN: Patient seen and examined. Status post 5 doses of Cytotec with no cervical change. Attempted to place Mckeon bulb, failed. AROM attempted, failed. Will start Pitocin. Educated patient on induction status. Preeclampsia with severe features continue labetalol 200 mg twice daily and magnesium. For mag level now
[2021-05-17 10:21] LABS: Bedside Glucose 102 mg/dL (74-106)
[2021-05-17] MEDS: Labetalol 200 MG Tablet PO ×2 (10:49→21:39)
[2021-05-17] MEDS: Oxytocin 30 units/NS 500 ml 30 UNITS/500 ML IV.SOLN IV (10:52)
[2021-05-17 11:11] LABS: Bedside Glucose 123 mg/dL (74-106)
[2021-05-17 12:25] LABS: Bedside Glucose 135 mg/dL (74-106)
[2021-05-17 13:46] LABS: Bedside Glucose 148 mg/dL (74-106)
[2021-05-17 14:16] LABS: Bedside Glucose 139 mg/dL (74-106)
[2021-05-17 15:15] LABS: Bedside Glucose 124 mg/dL (74-106)
[2021-05-17] MEDS: Mag Hydrox/Al Hydrox/Simeth 30 ML UDC PO (15:18)
[2021-05-17 15:53] LABS: Magnesium 6.8 mg/dL (1.6-2.6)
[2021-05-17 16:06] LABS: Bedside Glucose 115 mg/dL (74-106)
[2021-05-17 17:16] LABS: Bedside Glucose 116 mg/dL (74-106)
--- NOTE | 2021-05-17 18:05 | NURSING ---
Pump did not save increase of insulin at 1700. Was continuing to run at 3.5. Per protocol BG at 1800 indicated increase by 0.5 units. Will not increase to 4.0 units.
[2021-05-17 18:16] LABS: Bedside Glucose 120 mg/dL (74-106)
[2021-05-17 19:31] LABS: Bedside Glucose 120 mg/dL (74-106)
[2021-05-17 20:11] LABS: Bedside Glucose 115 mg/dL (74-106)
--- NOTE | 2021-05-17 21:03 | PCM.PN.OB ---
Subjective Subjective No complaints Objective Data Objective Data Vital Signs: Vital Signs Temp Pulse Resp BP Pulse Ox 97.1 F L 79 12 135/83 H 98 05/17/21 20:01 05/17/21 20:01 05/17/21 18:00 05/17/21 20:01 05/17/21 20:01 Oxygen Delivery Method Room Air Weight: 304 lb 14.389 oz Body Mass Index (BMI) 46.3 Intake & Output: Intake and Output for Last 24 Hours 05/15/21 05/16/21 05/17/21 23:59 23:59 23:59 Intake Total 1425.75 / 1425.75 4127.70 / 4127.70 Output Total 700 / 700 3350 / 3350 Balance 725.75 / 725.75 777.70 / 777.70 Lab / Micro Data Result Diagrams: 05/16/21 11:00 05/16/21 11:00 Labs: Laboratory Results - last 24 hr 05/16/21 21:04: POC Glucose 145 H 05/16/21 22:07: POC Glucose 142 H 05/16/21 23:14: POC Glucose 132 H 05/16/21 23:45: Magnesium 5.6 H* 05/17/21 00:17: POC Glucose 141 H 05/17/21 01:12: POC Glucose 146 H 05/17/21 02:23: POC Glucose 136 H 05/17/21 03:16: POC Glucose 111 H 05/17/21 04:16: POC Glucose 117 H 05/17/21 05:15: POC Glucose 107 H 05/17/21 06:19: POC Glucose 93 05/17/21 07:11: POC Glucose 104 05/17/21 08:06: POC Glucose 90 05/17/21 09:05: POC Glucose 113 H 05/17/21 10:10: POC Glucose 102 05/17/21 10:57: POC Glucose 123 H 05/17/21 12:22: POC Glucose 135 H 05/17/21 13:06: POC Glucose 148 H 05/17/21 14:01: POC Glucose 139 H 05/17/21 15:11: POC Glucose 124 H 05/17/21 15:17: Magnesium 6.8 H* 05/17/21 15:58: POC Glucose 115 H 05/17/21 16:58: POC Glucose 116 H 05/17/21 18:04: POC Glucose 120 H 05/17/21 19:12: POC Glucose 120 H 05/17/21 20:03: POC Glucose 115 H Micro: Microbiology 05/16/21 11:15 Nasal Secretion SARS-CoV-2 Antigen (Rapid) - Final Physical Exam Const alert, oriented x3, no apparent distress, average body habitus, healthy appearing and well nourished HEENT normocephalic and moist oral mucous membranes Head and Scalp: atraumatic Face and Sinus: normal facial exam Neck full ROM Resp normal respiratory effort, no retractions and no use of accessory muscles GI GI Narrative: Soft, nontender, gravid Extremity normal to inspection, full ROM and no clubbing, cyanosis or edema Psych mental status grossly normal, affect normal, speech normal and activity/motor behavior normal Assessment & Plan (1) : PLAN: Patient seen and examined. Beginning to feel contractions with titrated Pitocin. Blood pressures nonsevere range. We will continue magnesium. For mag level at 2130. We will continue to titrate Pitocin. Educated patient on failed induction and possibility for primary section. Patient state understanding. We will continue current management at this time. Patient interested in IUD, educated patient on risk benefits alternatives. Discussed immediate IUD versus IUD placement. Patient states wishes for IUD at visit.
[2021-05-17 22:00] LABS: Magnesium 6.4 mg/dL (1.6-2.6)
[2021-05-17 22:21] LABS: Bedside Glucose 110 mg/dL (74-106)
[2021-05-17 22:21] LABS: Bedside Glucose 113 mg/dL (74-106)
[2021-05-17 23:16] LABS: Bedside Glucose 101 mg/dL (74-106)
[2021-05-17] MEDS: Lactated Ringers 500 ML 999 ML IV (23:16)
[2021-05-18] VITALS (93 sets, daily range): BP systolic 80–134; BP diastolic 44–81; PULSE 59–88; RESP 12–18; TEMP 36.1–37.1; O2SAT 85–99
[2021-05-18] MEDS: Penicillin G 3,000,000 Units 50 ML 100 UNITS IV ×2 (00:04→04:04)
[2021-05-18 00:11] LABS: Bedside Glucose 101 mg/dL (74-106)
[2021-05-18] MEDS: fentaNYL-bupivacaine (epidural) 100 ML BAG EPIDURAL (00:32)
[2021-05-18] MEDS: Lactated Ringers 500 ML 999 ML IV (00:42)
[2021-05-18] MEDS: 0.9% Saline Lock 10 ML Syringe IV (00:50)
[2021-05-18] MEDS: Ondansetron 4 MG/2 ML Vial IV (00:50)
[2021-05-18 01:31] LABS: Bedside Glucose 99 mg/dL (74-106)
[2021-05-18] MEDS: Mag Hydrox/Al Hydrox/Simeth 30 ML UDC PO (02:03)
[2021-05-18 02:11] LABS: Bedside Glucose 109 mg/dL (74-106)
[2021-05-18 03:16] LABS: Bedside Glucose 115 mg/dL (74-106)
[2021-05-18 04:21] LABS: Bedside Glucose 115 mg/dL (74-106)
[2021-05-18] MEDS: Dext 5%-0.45% NS 1,000 ML 125 ML IV (04:58)
[2021-05-18 05:16] LABS: Bedside Glucose 105 mg/dL (74-106)
[2021-05-18 06:26] LABS: Bedside Glucose 110 mg/dL (74-106)
[2021-05-18 07:26] LABS: Bedside Glucose 115 mg/dL (74-106)
[2021-05-18 08:16] LABS: Bedside Glucose 106 mg/dL (74-106)
--- NOTE | 2021-05-18 08:18 | PN.OBGYN_ITS ---
Subjective Subjective No complaints Objective Data Objective Data Vital Signs: Vital Signs Temp Pulse Resp BP Pulse Ox 97.3 F L 69 14 108/67 99 05/18/21 08:00 05/18/21 08:08 05/18/21 08:00 05/18/21 08:08 05/18/21 08:02 Oxygen Delivery Method Room Air Weight: 304 lb 14.389 oz Body Mass Index (BMI) 46.3 Intake & Output: Intake and Output for Last 24 Hours 05/16/21 05/17/21 05/18/21 23:59 23:59 23:59 Intake Total 1425.75 / 1425.75 4951.45 / 4961.45 2472.59 / 2472.59 Output Total 700 / 700 3550 / 3550 923 / 923 Balance 725.75 / 725.75 1401.45 / 1411.45 1549.59 / 1549.59 Lab / Micro Data Result Diagrams: 05/16/21 11:00 05/16/21 11:00 Labs: Laboratory Results - last 24 hr 05/17/21 09:05: POC Glucose 113 H 05/17/21 10:10: POC Glucose 102 05/17/21 10:57: POC Glucose 123 H 05/17/21 12:22: POC Glucose 135 H 05/17/21 13:06: POC Glucose 148 H 05/17/21 14:01: POC Glucose 139 H 05/17/21 15:11: POC Glucose 124 H 05/17/21 15:17: Magnesium 6.8 H* 05/17/21 15:58: POC Glucose 115 H 05/17/21 16:58: POC Glucose 116 H 05/17/21 18:04: POC Glucose 120 H 05/17/21 19:12: POC Glucose 120 H 05/17/21 20:03: POC Glucose 115 H 05/17/21 21:08: POC Glucose 113 H 05/17/21 21:30: Magnesium 6.4 H* 05/17/21 22:05: POC Glucose 110 H 05/17/21 22:58: POC Glucose 101 05/18/21 00:04: POC Glucose 101 05/18/21 01:03: POC Glucose 99 05/18/21 02:03: POC Glucose 109 H 05/18/21 03:08: POC Glucose 115 H 05/18/21 04:02: POC Glucose 115 H 05/18/21 05:03: POC Glucose 105 05/18/21 06:03: POC Glucose 110 H 05/18/21 07:07: POC Glucose 115 H 05/18/21 08:05: POC Glucose 106 Micro: Microbiology 05/16/21 11:15 Nasal Secretion SARS-CoV-2 Antigen (Rapid) - Final Physical Exam Const alert, oriented x3, no apparent distress, average body habitus, healthy appearing and well nourished HEENT normocephalic and moist oral mucous membranes Head and Scalp: atraumatic Face and Sinus: normal facial exam Eyes PERRL Neck full ROM Resp normal respiratory effort, no retractions and no use of accessory muscles Extremity normal to inspection, full ROM and no clubbing, cyanosis or edema Psych mental status grossly normal, affect normal, speech normal and activity/motor behavior normal Assessment & Plan (1) : PLAN: Patient seen and examined. Minimal cervical dilation, 3 cm per nursing. Educated patient on findings. Patient desires primary se ction. Educated patient on risk benefits alternatives including but not limited to visceral or vascular injury, prolonged hospitalization, blood loss need for transfusion, reoperation, need for future C-sections. Discussed recovery from vaginal deliveries versus sections. Discussed pain control. Educated patient on possibility of vaginal delivery. Patient states understanding and wished to proceed with elective primary section. For 3 g Ancef and 500 mg of azithromycin. Hemabate and Cytotec to be present at operating room. To stop insulin drip when moving to the operating room. Continue magnesium, will hold p.o. labetalol dose to now. Anesthesia to see. SANDWICH COUNTER ATTENDANT called. For C- section now
[2021-05-18] MEDS: Acetaminophen 500 MG Tablet PO (08:26)
[2021-05-18] MEDS: Sodium Citrate/Citric Acid 30 ML UDC PO (08:26)
--- NOTE | 2021-05-18 09:48 | OP.PCM_ITS ---
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 Normal uterus, tubes, and ovaries. Consent: Patient arrived and was induced for preeclampsia with severe features based on severe range blood pressures at 37 weeks along with GDM A2. IV blood pressure medications were given and magnesium was started, insulin drip was started for sugar control. Cytotec induction was performed along with AROM and Pitocin. Minimal cervical dilation was noted after prolonged period of time. Educated patient on findings and patient elected for primary low transverse section Via Pfannenstiel incision. Patient understands the risk of the procedure include but are not limited to visceral or vascular injury, prolonged hospitalization, blood loss and need for transfusion, reoperation. Patient stated understanding and wished to proceed. All questions were answered and consent was signed. Procedure: Patient was brought back to the OR where epidural anesthesia was found to be adequate. 3 g of Ancef were given for infection prophylaxis and 500 mg of azithromycin. Patient was prepared and draped in a supine position with leftward tilt. A Pfannenstiel incision was made at the skin with a scalpel. The incision was carried down to the fascia. The fascia was excised and extended laterally. Inferior aspect of the fascia was grasped with a clamp and the underlying rectus and pyramidalis muscle were dissected off sharply with Nam scissors. In a similar aspect the superior aspect of the fascia was grasped and the underlying rectus muscle was dissected off sharply. The rectus muscle was dissected at the midline down to the level of the pubic symphysis. P reperitoneal fatty tissue was noted and peritoneum was entered bluntly. Peritoneum was extended superiorly and inferiorly with good visualization of bladder. Bladder blade was inserted and vesicouterine peritoneum was identified. Low transverse hysterotomy was made. Hand was brought into the incision and gentle fundal pressure was applied once the head was brought into the incision and the bladder blade was removed. Head and shoulders were delivered with ease. Cord was cut and clamped. Baby was handed off to nursing. Placenta was delivered via cord traction and fundal massage. IV oxytocin was initiated in order to facilitate uterine contractions. Uterus was exteriorized and wiped out with dry laparotomy sponge in order to remove remaining placental membranes. Uterus was closed in a continuous running fashion. [id number] used for hemostasis and Bovie. Good hemostasis was noted. Uterus was placed back into the abdominal cavity and the incision was reinspected and good hemostasis was noted. Fascia was closed in a continuous running fashion with PDS suture. Subcutaneous irrigation was performed. Good hemostasis was noted. Skin was closed in a subcuticular fashion. All counts were correct x2. Patient tolerated the procedure well and was brought to recovery in a stable condition.
[2021-05-18] MEDS: Oxytocin 30 units/NS 500 ml 30 UNITS/500 ML IV.SOLN 167 UNITS IV (10:10)
[2021-05-18] MEDS: Magnesium Sulfate 20 GM/500 ML BAG IV (10:48)
[2021-05-18] MEDS: Ketorolac 30 MG/ML Syringe IV ×2 (10:55→18:46)
[2021-05-18] MEDS: Lactated Ringers 1,000 ML 100 ML IV (13:33)
[2021-05-18 15:00] LABS: Absolute Lymphocyte Count 1.54 X10^3/uL (0.83-4.51); Basophil# 0.06 X10^3/uL; Basophil% 0.6 % (0-1); Eosinophil# 0.17 X10^3/uL; Eosinophils% 1.8 % (0-5); Hematocrit 30.1 % (37-47); Hemoglobin 9.6 g/dL (12.0-15.0); Lymphocyte # 1.54 X10^3/ul (0.83-4.51); Lymphocyte % 16.4 % (19-41); Mean Corp Hgb Conc 31.9 g/dL (32-36); Mean Corpuscular Hgb 26.1 pg (27.0-32.0); Mean Corpuscular Volume 81.8 fL (81-99); Mean Platelet Vol. 10.2 fl (6.2-12.0); Monocyte# 0.66 X10^3/uL; NRBC Flagged by Analyzer 0 % (0-5); Neutrophil # 6.96 X10^3/uL (2.7-7.7); Platelet Count 232 K/mm3 (150-450); RBC Distribution Width CV 14.5 % (11.6-14.6); RBC Distribution Width SD 42.9 fl (35.1-43.9); Red Blood Count 3.68 M/mm3 (4.2-5.4); White Blood Count 9.4 K/mm3 (4.4-11.0)
[2021-05-18] MEDS: Acetaminophen 500 MG Tablet 1000 MG PO ×2 (15:24→21:51)
[2021-05-18] MEDS: Cefazolin 1 GM/50 ML BAG IV (18:46)
--- NOTE | 2021-05-18 19:02 | NURSING ---
delayed due to pt requesting to sleep
[2021-05-18] MEDS: Enoxaparin 40 MG/0.4 ML Syringe SC (21:51)
[2021-05-19] VITALS (12 sets, daily range): BP systolic 117–146; BP diastolic 60–82; PULSE 63–86; RESP 14–18; TEMP 36.4–36.7; O2SAT 95–100
[2021-05-19] MEDS: Cefazolin 1 GM/50 ML BAG IV (01:00)
[2021-05-19] MEDS: Ketorolac 30 MG/ML Syringe IV ×2 (01:00→07:32)
[2021-05-19 02:01] LABS: Bedside Glucose 99 mg/dL (74-106)
[2021-05-19] MEDS: Magnesium Sulfate 20 GM/500 ML BAG IV (03:24)
[2021-05-19] MEDS: Acetaminophen 500 MG Tablet 1000 MG PO ×4 (03:26→22:13)
[2021-05-19 06:06] LABS: Bedside Glucose 123 mg/dL (74-106)
[2021-05-19 06:18] LABS: Hemoglobin 9.1 g/dL (12.0-15.0); Mean Corp Hgb Conc 32.5 g/dL (32-36); Mean Corpuscular Hgb 26.8 pg (27.0-32.0); Mean Corpuscular Volume 82.4 fL (81-99); Platelet Count 219 K/mm3 (150-450); RBC Distribution Width CV 14.6 % (11.6-14.6); RBC Distribution Width SD 43.7 fl (35.1-43.9); White Blood Count 7.8 K/mm3 (4.4-11.0)
--- NOTE | 2021-05-19 06:40 | PCM.PN.OB ---
Subjective Subjective Resting comfortably in bed Objective Data Objective Data Vital Signs: Vital Signs Temp Pulse Resp BP Pulse Ox 97.8 F 70 16 117/75 96 05/19/21 06:09 05/19/21 06:09 05/19/21 06:09 05/19/21 06:09 05/19/21 06:09 Oxygen Delivery Method Room Air Weight: 304 lb 14.389 oz Body Mass Index (BMI) 46.3 Intake & Output: Intake and Output for Last 24 Hours 05/17/21 05/18/21 05/19/21 23:59 23:59 23:59 Intake Total 4951.45 / 4961.45 4220.90 / 4220.90 1984 Output Total 3550 / 3550 1972 1200 / 1200 Balance 1401.45 / 1411.45 2247.90 / 2247.90 785 / 785 Lab / Micro Data Result Diagrams: 05/19/21 06:05 05/19/21 06:05 Labs: Laboratory Results - last 24 hr 05/18/21 07:07: POC Glucose 115 H 05/18/21 08:05: POC Glucose 106 05/18/21 13:19: POC Glucose 99 05/18/21 14:50: WBC 9.4, RBC 3.68 L, Hgb 9.6 L, Hct 30.1 L, MCV 81.8, MCH 26.1 L, MCHC 31.9 L, RDW Std Deviation 42.9, RDW Coeff of Chandana 14.5, Plt Count 232, MPV 10.2, Immature Gran % (Auto) 0.200, Neut % (Auto) 74.0 H, Lymph % (Auto) 16.4 L, [place] % (Auto) 7.0, Eos % (Auto) 1.8, Baso % (Auto) 0.6, Absolute Neuts (auto) 7.0, Absolute Lymphs (auto) 1.54, Nucleated RBC % 0 05/19/21 05:50: POC Glucose 123 H 05/19/21 06:05: WBC 7.8, RBC 3.40 L, Hgb 9.1 L, Hct 28.0 L, MCV 82.4, MCH 26.8 L, MCHC 32.5, RDW Std Deviation 43.7, RDW Coeff of Chandana 14.6, Plt Count 219, MPV 10.0 Micro: Microbiology 05/16/21 11:15 Nasal Secretion SARS-CoV-2 Antigen (Rapid) - Final Physical Exam Const no apparent distress, average body habitus, healthy appearing and well nourished HEENT normocephalic Head and Scalp: atraumatic Resp normal respiratory effort, no retractions and no use of accessory muscles Extremity normal to inspection and no clubbing, cyanosis or edema Assessment & Plan (1) delivery delivered: PLAN: Postop day 1 status post primary section for failure to progress. Preeclampsia with severe features based on severe range blood pressures will DC make at 24 hours after delivery, today. HELLP labs today. GDM A2, will continue to monitor blood sugars. For support
[2021-05-19 06:55] LABS: BUN 13 mg/dL (7-18); BUN/Creat Ratio 16.8 RATIO (10-20); Creatinine, Serum 0.78 mg/dL (0.55-1.02); EST Glomerular Filtration Rate 95 mL/min (>60); Est Glom Filt Rate - Afr Amer 115 mL/min (>60); Estimated Creatinine Clearance 109.29 ml/min; Glucose 123 mg/dL (74-106); Protein, Total 5.5 g/dL (6.4-8.2)
[2021-05-19 06:56] LABS: ALB/GLOB Ratio 0.6 RATIO (0.9-2.4); AST(SGOT) 12 U/L (15-37); Alanine Aminotransfer ALT/SGPT 8 U/L (13-56); Alkaline Phosphatase 113 U/L (45-117); Anion Gap 3 (5-15); Calcium,Total 7.2 mg/dL (8.5-10.1); Chloride 106 mmol/L (98-107); Globulin 3.5 g/dL (2.2-4.2); LDH 220 U/L (84-246); Potassium 4.7 mmol/L (3.5-5.1); Sodium Level 135 mmol/L (136-145)
[2021-05-19] MEDS: Enoxaparin 40 MG/0.4 ML Syringe SC (09:26)
[2021-05-19] MEDS: Senna/Docusate Sodium 1 Tablet PO (09:27)
[2021-05-19] MEDS: Labetalol 200 MG Tablet PO ×2 (09:27→22:13)
[2021-05-19] MEDS: Ibuprofen 600 MG Tablet PO ×2 (13:05→19:42)
--- NOTE | 2021-05-19 16:40 | CASEMGMT ---
Social Work Assessment Labor and Delivery Unit Patient Address: [address] [place] [address] Phone number: [phone] Date of Referral: 05/18/2021 Time of Referral: 1412 Referred By: Dr. Edmund Wilkinson Date of Intervention: 05/19/2021 Time of Intervention: Approximately 1600 Reason for Referral: Maternal history of depression History obtained from: Medical records and mother of baby (MOB) Susan Redman; MOB's adoptive mother Isatu present for part of conversation. Household composition: MOB and father of baby (FOB) lives at home. Home situation is reportedly safe and adequate. Patient's parent/guardian status: DIANNE is a 26-year-old female, to the FOB Jett Redman ( 07/31/1988). Together for about 5 to 6 years. During private conversation MOB denies any form of abuse, control or intimidation. [place] baby is the first child for both parents, to be named Roel Redman (born 05/18/2022). Medical History: DIANNE is 1, para 0 now 1 after delivering Roel. care started at 11 weeks gestation and regular thereafter. MOB with a history of chronic hypertension, preeclampsia, and gestational diabetes. MOB on insulin. delivered at 37 weeks gestation with Apgars 8 and 9 at 1 and 5 minutes of life respectively. weight 7 pounds 13 ounces. Educational Status: DIANNE has a high school diploma. 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 No reported issues with reading, writing, or learning comprehension. Financial Status: DIANNE works at [employer] and will be going to first shift upon return from maternity leave. The FOB works as an power plant electrician at [employer] on third shift. Infant Supplies: MOB reports to have all necessary supplies including car seat, safe sleep spaces, clothing, diapers, wipes. MOB is planning to breast-feed. Childcare/Caregiver(s): MOB and FOB will be the primary caregiver. The 's paternal grandmother will be providing childcare when the parents are working. Transportation: Both MOB and FOB drive. No issues with transportation. Programs/Agencies Involved: No reported agency involvement. Denies need for WIC or similar services. Children Services/Legal Issues: No legal issues or history of children services. Behavioral Health Issues: Mental Health History: MOB reports loss of her biological mother at the age of 5 and went to live with her adoptive father and mother at that point. MOB started counseling in elementary school with the school counselor. History of depression and anxiety. MOB endorses history of interrupted suicide attempt around the age of 15, making preparations to use a razor blade when the MOB little sister barged into the MOB room. MOB denies any planning, attempts, or intent since that episode at the age of 15. Reports being interrupted by her family member made the MOB step back and reflect on what kind of lasting effect it would have on family should MOB take her own life. MOB reports counseling on and off through the years and reports counseling has been helpful and given the MOB tools and skills to use to manage depression and anxiety. MOB had an [place] depression screen on 11/12/2020 with a score of 3. During this assessment scale repeated and score is a 2. Substance Use History: MOB denies any substance use during and denies any history of substance use issues. Family History: MOB reports she really does not know her biological family. Drug Screens: No drug screens performed, or noted in the record. Family/Social Stressors: No current or recent stressors reported. Support Systems: FOB, MOB family, and MOB adoptive family. FOB will have 2 weeks off of work to help MOB at home. Depression/Shaken Baby/Safe Sleeping: Educated MOB to safe sleeping and shaken baby prevention. MOB able to give appropriate responses. Reviewed mood and anxiety disorders, risk factors, and importance of supervision ultrastructure should symptoms arise and or become distressing. ASSESSMENT: Met with MOB and MOB's adoptive mother in room, introducing to self and social work role. MOB reports the FOB went home to get some rest, as has not been able to sleep well on the couch for the last three days. MOB reports she is feeling a connection to the baby, and that FOB has been helpful, hands on with baby care. MOB reports to have necessary supplies to care for the baby and to have adequate support between FOB and other family members. Discussed and educated to mood and anxiety disorders. MOB talked about history of depression openly, nondefensive, and reporting to feel that current mood and anxiety is well managed. MOB reports has seen an improvement with mood and anxiety since becoming involved with the FOB. Reports the FOB is supportive and the main person MOB goes to for emotional support. MOB reports talking to the FOB really helps as well as using skills learned in the past with counseling. MOB denies any thoughts regarding suicide, and is able to say that her family is a big reason to live and move forward in life. MOB reports that if symptoms of mood or anxiety arise and support from family is not adequate would be willing to go back to counseling. MOB accepting of mood and anxiety packet, which includes online and local resources for support. Provided [facility] resource [facility] as well should additional services/supports be needed. MOB had appropriate affect during visit with social services manager, good eye contact, talkative, did become tearful a few times but appropriate to topics being discussed. Baby slept in bedside crib for duration of visit, so no interactions noted. Per nursing, MOB and FOB have needed extended time when providing baby care, such as diapering. MOB does reports experience was overall a good one, and reports to feel good that was able to labor for as long as did before going to . MOB reports accepting of the fact she had a reporting her health and health of baby is foremost important. Let MOB know that this functional tester typewriters remains available should additional needs arise. PLAN: MOB and at home at time of discharge. Resources for home-going have been provided for community social service agency and depression and anxiety. No other services requested or indicated at this time, though social work does remain available if needed. -JANICE Farris, JAMES *This note was generated with Wortalation software. It may contain incorrect words, spelling, and punctuation that were not noted in review of the chart prior to signing*
[2021-05-20 00:55] VITALS: BP 128/75; PULSE 63; RESP 16; TEMP 36.8; O2SAT 96
[2021-05-20] MEDS: Ibuprofen 600 MG Tablet PO ×4 (00:58→20:32)
[2021-05-20 04:00] VITALS: BP 138/85; PULSE 60; RESP 16; TEMP 36.4; O2SAT 96
[2021-05-20] MEDS: Acetaminophen 500 MG Tablet 1000 MG PO ×4 (04:20→22:33)
[2021-05-20 07:45] VITALS: BP 156/78; BP 156/87; PULSE 63; RESP 16; TEMP 37.1; O2SAT 96
--- NOTE | 2021-05-20 08:31 | NURSING ---
Phone call placed to [facility] OB office, talked with RN. Gave info of BP 156/78 and 156/87. 200 mg Labetelol PO due at 1000. Plan is to call this RN back with any new orders.
--- NOTE | 2021-05-20 09:06 | PCM.PN.OB ---
Subjective Subjective Denies headache, vision changes, shortness of breath. She feels well overall. Denies heavy lochia. She is . Pain controlled. Objective Data Objective Data Vital Signs: Vital Signs Temp Pulse Resp BP Pulse Ox 98.8 F 63 16 156/78 H 96 05/20/21 07:45 05/20/21 07:45 05/20/21 07:45 05/20/21 07:45 05/20/21 07:45 Oxygen Delivery Method Room Air Weight: 138.3 kg Body Mass Index (BMI) 46.3 Intake & Output: Intake and Output for Last 24 Hours 05/18/21 05/19/21 05/20/21 23:59 23:59 23:59 Intake Total 4220.90 / 4220.90 2136.67 / 2136.67 Output Total 1972 1200 / 1200 Balance 2247.90 / 2247.90 936.67 / 936.67 Lab / Micro Data Result Diagrams: 05/19/21 06:05 05/19/21 06:05 Micro: Microbiology 05/16/21 11:15 Nasal Secretion SARS-CoV-2 Antigen (Rapid) - Final Physical Exam Const alert, oriented x3 and no apparent distress Resp normal respiratory effort, normal air movement and clear to auscultation bilaterally Cardio regular rate, regular rhythm, S1 normal heart sound and S2 normal heart sound GI normal to inspection, nondistended, normoactive bowel sounds, soft to palpation, non-tender and non-distended GI Narrative: incisional dressing c/d/i Manual OB Exam: other lochia scant Uterus Palpation: uterus fundus firm Extremity no calf tenderness Extremity Narrative: +1 b/l LE edema Assessment & Plan (1) delivery delivered: PLAN: Routine postop care (2) Preeclampsia: QUALIFIERS: Trimester: third trimester Qualified Code(s): O14.93 - Unspecified pre-eclampsia, third trimester PLAN: Pt asx s/p magnesium BP elevated, will increased Labetalol
[2021-05-20] MEDS: Enoxaparin 40 MG/0.4 ML Syringe SC (10:22)
[2021-05-20] MEDS: Senna/Docusate Sodium 1 Tablet PO (10:22)
[2021-05-20] MEDS: Labetalol 200 MG Tablet 400 MG PO ×2 (10:22→22:34)
[2021-05-20 12:15] VITALS: BP 131/71
[2021-05-20 15:58] VITALS: BP 144/76; BP 144/80; PULSE 72; RESP 16; TEMP 37; O2SAT 96
--- NOTE | 2021-05-20 16:44 | NURSING ---
Left olivia for Dr. Thomas about BP 141/81. Increased dose earlier from 200 mg BID to 400 mg BID. Pt complains of back pain, nausea, chills and hair tingling. All other VSS.
[2021-05-20 20:34] VITALS: BP 141/78; PULSE 67; RESP 18; TEMP 36.6; O2SAT 97
[2021-05-21] MEDS: Ibuprofen 600 MG Tablet PO ×4 (02:09→20:52)
[2021-05-21 02:10] VITALS: BP 134/78; PULSE 65; RESP 18; TEMP 36.6; O2SAT 96
[2021-05-21] MEDS: Acetaminophen 500 MG Tablet 1000 MG PO ×4 (04:28→22:33)
[2021-05-21 08:58] VITALS: BP 140/67; PULSE 88; RESP 18; TEMP 36.7; O2SAT 99
--- NOTE | 2021-05-21 09:18 | PCM.PN.OB ---
Subjective Subjective No issues overnight. Reports nausea intermittent, believes this is related to eating chicken, otherwise, no vomiting and tolerates PO. Passing flatus. No headache, vision changes. Denies heavy lochia. Objective Data Objective Data Vital Signs: Vital Signs Temp Pulse Resp BP Pulse Ox 98.0 F 88 18 140/67 H 99 05/21/21 08:58 05/21/21 08:58 05/21/21 08:58 05/21/21 08:58 05/21/21 08:58 Oxygen Delivery Method Room Air Weight: 138.3 kg Body Mass Index (BMI) 46.3 Intake & Output: Intake and Output for Last 24 Hours 05/19/21 05/20/21 05/21/21 23:59 23:59 23:59 Intake Total 2136.67 / 2136.67 500 / 500 Output Total 1200 / 1200 Balance 936.67 / 936.67 500 / 500 Lab / Micro Data Result Diagrams: 05/19/21 06:05 05/19/21 06:05 Micro: Microbiology 05/16/21 11:15 Nasal Secretion SARS-CoV-2 Antigen (Rapid) - Final Physical Exam Const alert, oriented x3 and no apparent distress Resp normal respiratory effort, normal air movement and clear to auscultation bilaterally Cardio regular rate, regular rhythm, S1 normal heart sound and S2 normal heart sound GI normal to inspection, nondistended, normoactive bowel sounds, soft to palpation, non-tender and non-distended GI Narrative: incisional dressing c/d/i Manual OB Exam: other lochia scant Uterus Palpation: uterus fundus firm Extremity no calf tenderness Assessment & Plan (1) delivery delivered: PLAN: Routine postop care (2) Preeclampsia: QUALIFIERS: Trimester: third trimester Qualified Code(s): O14.93 - Unspecified pre-eclampsia, third trimester PLAN: BPs normal to mildly elevated Continue Labetalol Consider d/c home this evening if infant cleared for discharge, otherwise d/c home tomorrow
[2021-05-21] MEDS: Enoxaparin 40 MG/0.4 ML Syringe SC (09:53)
[2021-05-21] MEDS: Labetalol 200 MG Tablet 400 MG PO ×2 (09:53→22:33)
[2021-05-21] MEDS: Senna/Docusate Sodium 1 Tablet PO (09:53)
[2021-05-21 12:18] VITALS: BP 115/66; PULSE 65; RESP 17; TEMP 36.4; O2SAT 97
--- NOTE | 2021-05-21 15:38 | NURSING ---
Call placed to [facility] CLERK office to inform of patient vomiting; No answer.
--- NOTE | 2021-05-21 15:44 | NURSING ---
Call placed to Dr. Loan Wilkinson. Informed her of patient vomiting and her feeling nauseous for the past few days. Order received for PO zofran
[2021-05-21] MEDS: Ondansetron ODT 4 MG Tablet PO (16:07)
[2021-05-21 16:35] VITALS: BP 126/80; PULSE 65; RESP 17; TEMP 36.4
--- NOTE | 2021-05-21 19:10 | NURSING ---
Dr. Loan whitaker called at this time due to pt still feeling nauseous. Pt had a stool around 3pm, pt stated that it was formed at first but was then more loose. Also c/o right upper gastric pain. Orders received to insert an IV and give a 500cc LR bolus, draw a CBC, CMP, and LDH. Next shift nurse to call her with results
[2021-05-21] MEDS: Lactated Ringers 500 ML 999 ML IV (20:15)
[2021-05-21] MEDS: proCHLORPERazine 10 MG/2 ML Vial IV (20:23)
[2021-05-21] MEDS: 0.9% Saline Lock 10 ML Syringe IV (20:23)
[2021-05-21 20:31] LABS: Hematocrit 27.5 % (37-47); Hemoglobin 8.8 g/dL (12.0-15.0); Mean Corpuscular Hgb 26.2 pg (27.0-32.0); Mean Corpuscular Volume 81.8 fL (81-99); Mean Platelet Vol. 9.8 fl (6.2-12.0); Platelet Count 281 K/mm3 (150-450); RBC Distribution Width CV 14.7 % (11.6-14.6); RBC Distribution Width SD 43.4 fl (35.1-43.9); Red Blood Count 3.36 M/mm3 (4.2-5.4)
[2021-05-21 20:47] VITALS: BP 146/80; PULSE 63; RESP 16; TEMP 36.4; O2SAT 96
[2021-05-21 21:33] LABS: ALB/GLOB Ratio 0.6 RATIO (0.9-2.4); AST(SGOT) 28 U/L (15-37); Alanine Aminotransfer ALT/SGPT 30 U/L (13-56); Albumin, Serum 2.2 g/dL (3.2-5.0); Alkaline Phosphatase 106 U/L (45-117); Anion Gap 8 (5-15); BUN 10 mg/dL (7-18); BUN/Creat Ratio 13.7 RATIO (10-20); Calcium,Total 8.1 mg/dL (8.5-10.1); Chloride 107 mmol/L (98-107); Creatinine, Serum 0.73 mg/dL (0.55-1.02); EST Glomerular Filtration Rate 101 mL/min (>60); Est Glom Filt Rate - Afr Amer 123 mL/min (>60); Estimated Creatinine Clearance 116.77 ml/min; Glucose 91 mg/dL (74-106); LDH 197 U/L (84-246); Potassium 4.4 mmol/L (3.5-5.1); Protein, Total 6.2 g/dL (6.4-8.2); Sodium Level 139 mmol/L (136-145)
--- NOTE | 2021-05-21 21:58 | NURSING ---
dr crook updated on pt condition. IV compazine given. motrin given for pain. nausea resolved and pt resting at this time. labs reviewed per telephone with provider. bolus given around 2029. states no further orders. this RN to cancel PO phenergan and leave IV compazine and PO zofran as remaining orders an antiemetics.
[2021-05-22] MEDS: Ondansetron ODT 4 MG Tablet PO ×2 (00:52→10:52)
[2021-05-22 02:50] VITALS: BP 132/86; PULSE 64; RESP 18; TEMP 36.4; O2SAT 95
[2021-05-22] MEDS: proCHLORPERazine 10 MG/2 ML Vial IV (03:07)
[2021-05-22] MEDS: Ibuprofen 600 MG Tablet PO ×2 (03:07→09:33)
[2021-05-22] MEDS: 0.9% Saline Lock 10 ML Syringe IV (03:08)
[2021-05-22] MEDS: Acetaminophen 500 MG Tablet 1000 MG PO ×2 (04:42→14:28)
--- NOTE | 2021-05-22 08:10 | PN.OBGYN_ITS ---
Subjective Subjective Postop day 4 status post primary . Pain controlled. Lochia minimal. Reports nausea that started on Wednesday. Emesis yesterday. Improved today. Last dose of medication was around 3 AM. No pain with emesis. No dizziness, chest pain or shortness of breath, right upper quadrant pain. Eating small amounts and drinking well today. Objective Data Objective Data Vital Signs: Vital Signs Temp Pulse Resp BP Pulse Ox 97.6 F L 64 18 132/86 H 95 05/22/21 02:50 05/22/21 02:50 05/22/21 02:50 05/22/21 02:50 05/22/21 02:50 Oxygen Delivery Method Room Air Weight: 138.3 kg Body Mass Index (BMI) 46.3 Intake & Output: Intake and Output for Last 24 Hours 05/20/21 05/21/21 05/22/21 23:59 23:59 23:59 Intake Total 500 / 500 500 / 500 Balance 500 / 500 500 / 500 Lab / Micro Data Result Diagrams: 05/21/21 20:15 05/21/21 20:15 Labs: Laboratory Results - last 24 hr 05/21/21 20:15: WBC 8.0, RBC 3.36 L, Hgb 8.8 L, Hct 27.5 L, MCV 81.8, MCH 26.2 L , MCHC 32.0, RDW Std Deviation 43.4, RDW Coeff of Chandana 14.7 H, Plt Count 281, MPV 9.8 05/21/21 20:15: Sodium 139, Potassium 4.4, Chloride 107, Carbon Dioxide 24.0, Anion Gap 8, BUN 10, Creatinine 0.73, Estim Creat Clear Calc 116.77, Est GFR (MDRD) Af Amer 123, Est GFR (MDRD) Non-Af 101, BUN/Creatinine Ratio 13.7, Glucose 91, Calcium 8.1 L, Total Bilirubin 0.30, AST 28, ALT 30, Alkaline Phosphatase 106, Lactate Dehydrogenase 197, Total Protein 6.2 L, Albumin 2.2 L, Globulin 4.0, Albumin/Globulin Ratio 0.6 L Micro: Microbiology 05/16/21 11:15 Nasal Secretion SARS-CoV-2 Antigen (Rapid) - Final Physical Exam Const alert, oriented x3 and no apparent distress HEENT normocephalic Head and Scalp: atraumatic Neck full ROM Resp normal respiratory effort Cardio regular rate GI normal to inspection, nondistended, normoactive bowel sounds GI Narrative: Uterus 2 cm below umbilicus Dressing clean and dry. No right upper quadrant tenderness. Back/Spine normal ROM Extremity normal to inspection Extremity Narrative: Minimal pedal edema Neuro no focal motor deficits and no sensory deficits noted Psych mental status grossly normal and affect normal Assessment & Plan (1) Preeclampsia: QUALIFIERS: Trimester: third trimester Qualified Code(s): O14.93 - Unspecified pre-eclampsia, third trimester PLAN: Postop day 4 status post primary section. Complicated by preeclampsia: Blood pressures well controlled on labetalol. Labs within normal limits. Acute blood loss anemia secondary to surgery: Iron supplement at home. Nausea and emesis postoperatively: Patient passing flatus, having bowel movements. Eating small amounts today, drinking well. No abdominal pain. Will discharge home today with antiemetics, pain control, labetalol. Patient to call or return for headache that is unresolved, right upper quadrant pain, worsening emesis, no flatus or bowel movement. Patient desires discharge. Follow-up 1 week for postoperative visit. (2) delivery delivered: (3) Acute postoperative anemia due to expected blood loss: (4) Other acute postprocedural pain:
[2021-05-22 08:13] VITALS: BP 145/83; PULSE 56; RESP 16; TEMP 36.5; O2SAT 98
--- NOTE | 2021-05-22 08:13 | DS.PCM_ITS ---
Discharge Summary Date of Admission: 05/16/21 Date of Discharge: 05/22/21 Summary: 26-year-old female admitted on for induction of labor due to preeclampsia with severe features. Patient had primary section on Wednesday morning for failure to progress. She has been titrated on labetalol with control of blood pressures. Developed some nausea and vomiting, labs within normal limits. Nausea and emesis improving and tolerating diet. Desires home- going today. Physical Exam Const alert, oriented x3 and no apparent distress HEENT normocephalic Head and Scalp: atraumatic Neck full ROM Resp normal respiratory effort Cardio regular rate GI normal to inspection, nondistended, normoactive bowel sounds GI Narrative: Uterus 2 cm below umbilicus, dressing clean and dry. No right upper quadrant pain. Back/Spine normal ROM Extremity normal to inspection Extremity Narrative: Minimal pedal edema Neuro no focal motor deficits and no sensory deficits noted Psych mental status grossly normal and affect normal Meaningful Use Info Meaningful Use Diagnoses (Choose all that apply): None applicable Discharge Plan Admission Admit Date/Time: 05/16/21 10:00 Primary Reason for Your Visit: Preeclampsia, delivery Attending Provider: Edmund Wilkinson Primary Care Provider: Ernesto Dc Discharge Orders/Prescriptions Prescriptions: New labetalol 200 mg Tablet 400 mg PO BID Qty: 60 RF: 0 oxycodone 5 mg Tablet 5 mg PO Q6H PRN PRN (Reason: Pain Score 4-10) 3 Days Qty: 3 RF: 0 ondansetron 4 mg tablet,disintegrating 4 mg PO Q6H PRN (Reason: nausea and vomiting) 30 Days Qty: 30 RF: 1 promethazine 12.5 mg tablet 12.5 mg PO Q6H PRN (Reason: nausea and vomiting) 30 Days Qty: 60 RF: 1 Continued sumatriptan succinate 50 mg tablet See Rx Instructions PO .COMPLEX RF: 0 Flintstones Complete Tablet,Chewable 2 tab PO DAILY RF: 0 Discontinued metoprolol tartrate 25 mg tablet 25 mg PO DAILY RF: 0 famotidine [Pepcid] 20 mg Tablet 20 mg PO DAILY RF: 0 Referrals / Follow Up: Ernesto Dc MD [Primary Care Provider] - Disposition Disposition (needs filled in before D/C Order can be placed): Home, Self Care
--- NOTE | 2021-05-22 08:20 | PCM.DC ---
Discharge Instructions Diet Discharge Diet: No restrictions Activity Discharge Activity: Return to Normal Activity and May Shower May resume sexual activity in: 4-6 weeks Weight Bearing Status: Weight bearing as tolerated Lifting Restrictions: No greater than 25 pounds Dressing / Incision Call your doctor if you observe: Fever of 101 or Higher, Change in Color, Inability to urinate, Using more than 1 pad per hour, Shortness of breath, Dizziness, Swelling in the ankles, Chest pain and Calf discomfort Remove Dressing in: 1 week Cleanse incision/area with: Soap & Water Follow Up Care Please Follow Up With: Edmund Wilkinson MD When: 1 week post op Test Results: Test results from this visit will be discussed in further detail at your follow-up appointment, if applicable. Discharge Plan Admission Admit Date/Time: 05/16/21 10:00 Primary Reason for Your Visit: Preeclampsia, delivery Attending Provider: Edmund Wilkinson Primary Care Provider: Ernesto Dc Discharge Orders/Prescriptions Prescriptions: New labetalol 200 mg Tablet 400 mg PO BID Qty: 60 RF: 0 oxycodone 5 mg Tablet 5 mg PO Q6H PRN PRN (Reason: Pain Score 4-10) 3 Days Qty: 3 RF: 0 ondansetron 4 mg tablet,disintegrating 4 mg PO Q6H PRN (Reason: nausea and vomiting) 30 Days Qty: 30 RF: 1 promethazine 12.5 mg tablet 12.5 mg PO Q6H PRN (Reason: nausea and vomiting) 30 Days Qty: 60 RF: 1 Continued sumatriptan succinate 50 mg tablet See Rx Instructions PO .COMPLEX RF: 0 Flintstones Complete Tablet,Chewable 2 tab PO DAILY RF: 0 Discontinued metoprolol tartrate 25 mg tablet 25 mg PO DAILY RF: 0 famotidine [Pepcid] 20 mg Tablet 20 mg PO DAILY RF: 0 Referrals / Follow Up: Ernesto Dc MD [Primary Care Provider] - Disposition Disposition (needs filled in before D/C Order can be placed): Home, Self Care
[2021-05-22] MEDS: Labetalol 200 MG Tablet 400 MG PO (10:45)
[2021-05-22] MEDS: Enoxaparin 40 MG/0.4 ML Syringe SC (10:46)
[2021-05-22 10:50] VITALS: BP 136/87
--- NOTE | 2021-05-22 11:55 | CASEMGMT ---
Social Work Labor and Delivery Met with mother of baby (MOB) and father of baby (FOB) in room. Introduced self to the FOB. Touched base with parents on how doing with prolonged stay in the hospital. MOB reports to be feeling better and more hopeful, looking forward to discharge home which MOB anticipates to be today sometime. MOB talkative, bright affect, good eye contact. MOB reports breast milk is coming in and feels things are getting better with feeding, which MOB reports feeling was touch and go for a little bit. FOB presents as supportive, smiling, and reports will be off of work next week to help. MOB denies any further social work needs at this time. Emotional support and supportive listening offered this date. -DARRYN Farris, CREW BOSS
[2021-05-22 14:19] VITALS: PULSE 62; RESP 16; TEMP 36.7; O2SAT 97
== END 2021-05-22 15:35 | disposition home or self-care (01) | DRG 788 ==
PROVIDERS: Anesthesiology; Student in an Organized Health Care Education/Training Program; Admitting Provider Obstetrics & Gynecology; PCP Family Medicine; Visit Provider Obstetrics & Gynecology
DX: O62.0 Primary inadequate contractions (principal); O14.14 Severe pre-eclampsia complicating childbirth; Z37.0 Single live birth; Z3A.37 37 weeks gestation of pregnancy; O99.824 Streptococcus B carrier state complicating childbirth; O24.425 Gestational diabetes mellitus in childbirth, controlled by oral hypoglycemic drugs; O61.0 Failed medical induction of labor
CPT/HCPCS: 59025; 59050; 80053; 81001; 82565; 82570; 82962; 83615; 83735; 84156; 84450; 84460; 84550; 85025; 85027; 86703; 86762; 86780; 86850; 86900; 86901; 87426; 99218; 99251; J7120; A4216; G0378; G0463; J2405; J7799

== ENCOUNTER 2021-05-25 14:34 | Emergency (ER) | payer BC, SELFPAY ==
[2021-05-25 14:35] VITALS: BP 129/94; PULSE 82; RESP 18; TEMP 36.1; O2SAT 95; BMI 43.3
--- NOTE | 2021-05-25 15:14 | EX.ED.DYSGE1 ---
HPI History of Present Illness Chief Complaint: Nausea/Vomiting Detail of Chief Complaint: Nausea and vomiting x4 days Informant: patient Narrative Narrative: Patient presents to the emergency department complaint nausea and vomiting for the last 4 days. Patient states that she delivered a baby on May 18 via . Patient was admitted for preeclampsia. Patient also had gestational diabetes. Patient had episodes of nausea and vomiting throughout her stay in the hospital and she was discharged home with promethazine. She continues to throw up about twice a day. She denies abdominal pain. She denies headaches. She denies fevers. She denies urinary symptoms. She denies abnormal vaginal discharge or bleeding. Prior similar symptoms: No PFSH PFSH Medical History (Updated 05/25/21 @ 16:[address] Tony Sanders DO) GERD (gastroesophageal reflux disease) Graves disease Migraine Multiple thyroid nodules PCOS (polycystic ovarian syndrome) Preeclampsia Seasonal allergies Thyroid disease Thyroiditis, autoimmune UTI (urinary tract infection) Home Medications Flintstones Complete 2 tab PO DAILY 05/16/21 [History Last Taken Unknown] labetalol 400 mg PO BID #60 tab 05/21/21 [Rx Last Taken Unknown] oxycodone 5 mg PO Q6H PRN PRN 3 Days #3 tab 05/21/21 [Rx Last Taken Unknown] ondansetron 4 mg PO Q6H PRN 30 Days #30 tab 05/22/21 [Rx Last Taken Unknown] promethazine 12.5 mg PO Q6H PRN 30 Days #60 tab 05/22/21 [Rx Last Taken Unknown] ondansetron 4 mg PO Q8H PRN PRN #10 tab 05/25/21 [Rx Last Taken Unknown] Allergy/AdvReac Type Severity Reaction Status Date / Time shellfish derived Allergy Severe throat Verified 05/25/21 15:22 closing sulfamethoxazole Allergy Severe throat Verified 05/25/21 15:22 [From Bactrim] closing trimethoprim [From Bactrim] Allergy Severe throat Verified 05/25/21 15:22 closing pet dander Allergy Mild itchy Uncoded 05/25/21 15:22 eyes, runny nose Family History Mother Diabetes Other Alcoholism Anxiety Surgical History History of tonsillectomy History of wisdom tooth extraction Social History adopted: Yes (at age 5) Smoking Status: Never smoker alcohol intake: current alcohol intake frequency: a few times a month ROS ROS ED Constitutional Constitutional ED: Reports systems reviewed and no addt'l complaints, except as documented; Denies body ache(s), change in weight or chills Eyes Eyes: Denies acute decrease in peripheral vision, change in vision, double vision or loss of vision ENT ENT ED: Reports none; Denies ear pain, lip swelling, loss taste/smell, neck pain, otalgia or sore throat Cardiovascular Cardiovascular: Reports none; Denies abdominal pain, chest pain with activity, leg edema, lightheadedness, palpitations, rapid heart rate or syncope Respiratory/Chest Respiratory/Chest: Reports none; Denies change in mental status, dry cough, dyspnea, hemoptysis, shortness of breath at rest or shortness of breath with exertion Gastrointestinal Gastrointestinal: Reports none, diarrhea, nausea and vomiting; Denies abdominal pain, change in stool character, hematemesis, hematochezia, melena or rectal bleeding Genitourinary Genitourinary ED: Reports none; Denies abdominal discomfort, anuria, dysuria, genital pain or polyuria Musculoskeletal Musculoskeletal: Reports none; Denies arthralgias, back pain, difficulty walking, extremity pain, muscle weakness or myalgias Integumentary Reports none; Denies abscess or rash Neurologic Neurologic: Reports none; Denies abnormal gait, confusion, focal weakness, frequent falls, headache(s), loss of vision, numbness, paresthesias, radicular pain, vertigo or weakness Psychiatric Psychiatric: Reports systems reviewed and no addt'l complaints, except as documented and none; Denies behavioral changes, confusion, difficulty concentrating, hallucinations, suicidal ideation, tactile hallucinations or visual hallucinations Endocrine Endocrinology: Denies none, cold intolerance, excessive sweating, fatigue or heat intolerance Hematologic/Lymphatic Hematologic/Lymphatic: Reports none; Denies anemia, easy bleeding or easy bruising Allergic/Immunologic Allergic/Immunologic ED: Denies as per HPI, none, lip swelling, mouth swelling, throat swelling, tongue swelling or hives EXAM Physical Exam Const Vital Signs: 05/25/21 14:35 05/25/21 15:19 Temperature 97 F L 98.1 F Temperature Source Temporal Oral Pulse Rate 82 69 Respiratory Rate 18 17 Blood Pressure 129/94 H 140/83 H Blood Pressure Mean 105 102 Pulse Ox 95 98 Oxygen Delivery Method Room Air Room Air Positive well nourished and well developed General Appearance ED: well developed and NAD HEENT Reports TM's clear and moist mucous membranes normocephalic and atraumatic; Negative for trauma or tenderness Tympanic Membrane ED: Yes TM's clear Eyes PERRL and EOMs intact bilaterally General Eye ED: Negative for pale conjunctiva or scleral icterus Neck no lymphadenopathy, supple and no JVD General: Negative for tenderness Chest Wall inspection of chest normal and palpation of chest normal Chest: Negative for tenderness Resp normal respiratory effort and clear to auscultation bilaterally Effort and Inspection: Negative for respiratory distress or pain with movement Auscultation: Negative for rhonchi, wheezes or diminished lung sounds Cardio regular rate, regular rhythm, S1 normal heart sound, S2 normal heart sound and no murmurs Peripheral Pulses: pulses 2+ throughout GI normal to inspection, nondistended, normoactive bowel sounds, soft to palpation, non-tender, non-distended and no masses Back/Spine no CVA tenderness and no thoracic nor lumbar tenderness Extremity normal to inspection General Extremety ED: Negative for edema General Extremity: Negative for edema Neuro oriented x3, CN's II-XII intact bilaterally, no sensory deficits noted and gait normal Sensorium / Orientation: awake, alert, oriented to person, oriented to place and oriented to time Motor Exam: strength 5/5 throughout and strength abnormal Psych mental status grossly normal Skin no rashes or lesions noted and no wounds MDM MDM MDM Narrative Medical decision making narrative: IV line is arrival. Patient was given a liter mostly of fluid bolus. Patient given Zofran 4 mg IV and she had good relief of her nausea with this. Patient's lab work essentially unremarkable. Urinalysis was unremarkable. I discussed case with SOCIAL SERVICES SPECIALIST on-call Dr. Wilkinson who asked that we switch patient over to Zofran and they can see her in the office for follow-up. At this point her blood pressures have been unremarkable and there is no concern for preeclampsia. Lab Data Attestation: I reviewed the patient's lab results. Labs: Laboratory Results - last 24 hr 05/25/21 05/25/21 05/25/21 15:00 15:00 15:50 WBC 8.3 RBC 4.09 L Hgb 10.6 L Hct 33.4 L MCV 81.7 MCH 25.9 L MCHC 31.7 L RDW Std Deviation 42.2 RDW Coeff of Chandana 14.6 Plt Count 366 MPV 8.7 Immature Gran % (Auto) 0.600 Neut % (Auto) 76.0 H Lymph % (Auto) 15.5 L [place] % (Auto) 6.0 Eos % (Auto) 1.3 Baso % (Auto) 0.6 Absolute Neuts (auto) 6.3 Absolute Lymphs (auto) 1.29 Nucleated RBC % 0 Sodium 135 L Potassium 4.2 Chloride 101 Carbon Dioxide 26.0 Anion Gap 8 BUN 19 H Creatinine 0.73 Estim Creat Clear Calc 116.77 Est GFR (MDRD) Af Amer 122 Est GFR (MDRD) Non-Af 101 BUN/Creatinine Ratio 26.0 H Glucose 95 Calcium 8.8 Total Bilirubin 0.40 AST 11 L ALT 24 Alkaline Phosphatase 140 H Total Protein 7.0 Albumin 3.1 L Globulin 3.9 Albumin/Globulin Ratio 0.8 L Lipase 46 L Urine Color Yellow Urine Clarity Sl Cloudy Urine pH 6.0 Ur Specific [place] 1.015 Urine Protein 30 H Urine Glucose (UA) Normal Urine Ketones 15 H Urine Occult Blood 250 H Urine Nitrite Negative Urine Bilirubin Negative Urine Urobilinogen Normal Ur Leukocyte Esterase 25 H Urine RBC 5-10 SEEN Urine WBC 0-5 SEEN Ur Squamous Epith Cells 0-5 SEEN Urine Bacteria 0 SEEN Urine Mucus 0 SEEN Discharge Plan Triage Chief Complaint: Nausea/Vomiting ED Provider: Tony Sanders Dx/Rx/DC Orders Clinical Impression: Nausea & vomiting Instructions: ED Diet for Vomiting or ..., ED Vomiting (Adult) Prescriptions: New ondansetron [ondansetron] 4 MG tablet 4 mg PO Q8H PRN PRN (Reason: Nausea) Qty: 10 RF: 0 No Action Flintstones Complete Tablet,Chewable 2 tab PO DAILY RF: 0 labetalol 200 mg Tablet 400 mg PO BID Qty: 60 RF: 0 oxycodone 5 mg Tablet 5 mg PO Q6H PRN PRN (Reason: Pain Score 4-10) 3 Days Qty: 3 RF: 0 ondansetron 4 mg tablet,disintegrating 4 mg PO Q6H PRN (Reason: nausea and vomiting) 30 Days Qty: 30 RF: 1 promethazine 12.5 mg tablet 12.5 mg PO Q6H PRN (Reason: nausea and vomiting) 30 Days Qty: 60 RF: 1 Primary Care Provider: Ernesto Dc Referrals: Edmund Wilkinson MD [STAFF PHYSICIAN] - 3-5 Days Ernesto Dc MD [Primary Care Provider] - Disposition Disposition: Home, Self Care
[2021-05-25 15:19] VITALS: BP 140/83; PULSE 69; RESP 17; TEMP 36.7; O2SAT 98
[2021-05-25 15:21] LABS: Absolute Lymphocyte Count 1.29 X10^3/uL (0.83-4.51); Absolute Neutrophil Count 6.3 X10^3/uL (2.0-7.7); Basophil# 0.05 X10^3/uL; Basophil% 0.6 % (0-1); Eosinophil# 0.11 X10^3/uL; Eosinophils% 1.3 % (0-5); Hematocrit 33.4 % (37-47); Hemoglobin 10.6 g/dL (12.0-15.0); Lymphocyte # 1.29 X10^3/ul (0.83-4.51); Lymphocyte % 15.5 % (19-41); Mean Corp Hgb Conc 31.7 g/dL (32-36); Mean Corpuscular Hgb 25.9 pg (27.0-32.0); Mean Corpuscular Volume 81.7 fL (81-99); Mean Platelet Vol. 8.7 fl (6.2-12.0); NRBC Flagged by Analyzer 0 % (0-5); Neutrophil # 6.34 X10^3/uL (2.7-7.7); Platelet Count 366 K/mm3 (150-450); RBC Distribution Width CV 14.6 % (11.6-14.6); RBC Distribution Width SD 42.2 fl (35.1-43.9); Red Blood Count 4.09 M/mm3 (4.2-5.4); White Blood Count 8.3 K/mm3 (4.4-11.0)
[2021-05-25] MEDS: 0.9% Normal Saline 1,000 ML 1000 ML IV (15:25)
[2021-05-25] MEDS: Ondansetron 4 MG/2 ML Vial IV (15:25)
[2021-05-25 15:37] LABS: ALB/GLOB Ratio 0.8 RATIO (0.9-2.4); AST(SGOT) 11 U/L (15-37); Alanine Aminotransfer ALT/SGPT 24 U/L (13-56); Albumin, Serum 3.1 g/dL (3.2-5.0); Alkaline Phosphatase 140 U/L (45-117); Anion Gap 8 (5-15); BUN 19 mg/dL (7-18); Calcium,Total 8.8 mg/dL (8.5-10.1); Chloride 101 mmol/L (98-107); Creatinine, Serum 0.73 mg/dL (0.55-1.02); EST Glomerular Filtration Rate 101 mL/min (>60); Est Glom Filt Rate - Afr Amer 122 mL/min (>60); Estimated Creatinine Clearance 116.77 ml/min; Globulin 3.9 g/dL (2.2-4.2); Glucose 95 mg/dL (74-106); Lipase 46 U/L (73-393); Potassium 4.2 mmol/L (3.5-5.1); Sodium Level 135 mmol/L (136-145)
[2021-05-25 15:57] LABS: Bacteria 0 SEEN /hpf (None Seen); Mucous, Urine 0 SEEN /hpf (<or=2+)
[2021-05-25 16:07] LABS: Color, Urine Yellow (Yellow); Glucose, Dipstick Normal (Normal); Ketone-Dipstick 15 mg/dl (Negative); Leukocyte Esterase-Dipstick 25 /ul (Negative); Nitrite-Dipstick Negative (Negative); Occult Blood-Urine 250 /ul (Negative); Protein-Dipstick 30 mg/dl (Negative); Specific Gravity, Urine 1.015 (1.002-1.030); Urine Bilirubin Dipstick Negative (Negative); Urine Clarity Sl Cloudy (Clear); Urine Urobilinogen Normal (Normal)
[2021-05-25 16:08] LABS: Red Blood Cells-Urine 5-10 SEEN /hpf (0-5); Squamous Epithelial Cells - UA 0-5 SEEN /hpf (5-10); White Blood Cells 0-5 SEEN /hpf (0-5)
[2021-05-25 16:39] VITALS: BP 151/81; PULSE 63; RESP 16; O2SAT 100
== END 2021-05-25 16:40 | disposition home or self-care (01) ==
PROVIDERS: Emergency Provider Emergency Medicine; PCP Family Medicine; Visit Provider Emergency Medicine
DX: R11.2 Nausea with vomiting, unspecified (principal); Z79.899 Other long term (current) drug therapy
CPT/HCPCS: 80053; 81001; 83690; 85025; 96361; 96374; 99283; J7030; J2405

== ENCOUNTER 2021-05-28 12:46 | Emergency (ER) | payer BC, SELFPAY ==
[2021-05-28 12:47] VITALS: BP 119/77; PULSE 68; RESP 14; TEMP 36.5; O2SAT 97; BMI 38.2
[2021-05-28 12:52] VITALS: BP 128/82; PULSE 61; TEMP 36.4; O2SAT 99
--- NOTE | 2021-05-28 13:09 | CT_ITS ---
INDICATION: nausea and vomiting. 10 days post . EXAMINATION: CT ABDOMEN AND PELVIS WITH CONTRAST - CT Abdomen And Pelvis W/ Contrast Injection TECHNIQUE: Helically acquired images were obtained of the abdomen and pelvis following IV contrast. A radiation dose optimization technique was used for this scan. IV Contrast dosage and agent: Oral contrast: None. COMPARISON: CT abdomen and pelvis with contrast from 10/08/2017. FINDINGS: Lower thorax: Deep tendon atelectasis. Otherwise, the visualized lung bases are clear. Liver: Normal morphology. No acute findings. Gallbladder: Normal appearance. No significant duct dilation. Spleen: Unremarkable. Pancreas: No focal parenchymal lesion. No duct dilation. Adrenal glands: Unremarkable. Kidneys: No cystic or solid masses. No hydronephrosis. No acute findings. Bladder: Normal appearance. GI tract: There is mild circumferential wall thickening and submucosal edema in the descending colon to the level of the hepatic flexure. Minimal subtle pericolonic fat stranding at the hepatic flexure. No significant bowel dilation. Normal appendix. Peritoneum/mesentery/retroperitoneum: No significant free air or free fluid. No lymphadenopathy. Pelvis: Status post with defect in the anterior lower uterine segment. Midline expected postoperative stranding in the superficial soft tissues of the lower abdominal wall at the site of incision. Trace expected postoperative soft tissue inflammatory stranding anterior to the fundus. Nonspecific fluid within the endometrium which is dilated measuring up to 2.2 cm. No internal gas. No free air or organized fluid collections in the pelvis. Vasculature: No acute findings. Bones/soft tissues: No acute fracture or subluxation. No destructive osseous lesions. Expected postoperative soft tissue changes. CT/Abdomen/Pelvis W IV Cont ONLY IMPRESSION: 1. Nonspecific fluid-filled and dilated endometrium status post . This may relate to normal postoperative changes. If clinical concerns for endometritis or retained products of conception, ultrasound can be obtained for further evaluation. 2. Colitis involving the right descending colon and hepatic flexure. Electronically Signed: Anthony Monroe, at 14:32 EDT ,
--- NOTE | 2021-05-28 13:10 | ED.VIS.GI ---
HPI HPI - GI History of Present Illness Chief Complaint: Nausea/Vomiting Narrative Narrative: Patient presents with nausea, vomiting, and diarrhea since of last week, approximately 7 days ago. It should be noted that she states she had a 10 days ago. She was seen by her ELECTRICAL MECHANICAL TECHNICIAN today with concern for bowel obstruction versus ileus. She states in the last 24 hours she has vomited twice and had one episode of diarrhea. She denies any abdominal pain. No fevers or chills. No problems with her incision. She states she cannot keep any fluids down although she is already on promethazine. She is apparently taking labetalol for elevated blood pressure during and afterwards. She denies any headache, paresthesias, or any other symptoms. PFSH [facility] Medical History delivery due to maternal disorder GERD (gastroesophageal reflux disease) Graves disease Migraine Multiple thyroid nodules PCOS (polycystic ovarian syndrome) Preeclampsia Seasonal allergies Thyroid disease Thyroiditis, autoimmune UTI (urinary tract infection) Home Medications labetalol 400 mg PO BID #60 tab 05/21/21 [Rx Last Taken Unknown] oxycodone 5 mg PO Q6H PRN PRN 3 Days #3 tab 05/21/21 [Rx Last Taken Unknown] ondansetron 4 mg PO Q6H PRN 30 Days #30 tab 05/22/21 [Rx Last Taken Unknown] promethazine 12.5 mg PO Q6H PRN 30 Days #60 tab 05/22/21 [Rx Last Taken Unknown] ciprofloxacin HCl 500 mg PO BID #14 tab 05/28/21 [Rx Last Taken Unknown] metronidazole 500 mg PO TID #21 tab 05/28/21 [Rx Last Taken Unknown] ondansetron 4 mg PO Q6H PRN #14 tab 05/28/21 [Rx Last Taken Unknown] Allergy/AdvReac Type Severity Reaction Status Date / Time shellfish derived Allergy Severe throat Verified 05/28/21 12:47 closing sulfamethoxazole Allergy Severe throat Verified 05/28/21 12:47 [From Bactrim] closing trimethoprim [From Bactrim] Allergy Severe throat Verified 05/28/21 12:47 closing pet dander Allergy Mild itchy Uncoded 05/28/21 12:47 eyes, runny nose Family History Mother Diabetes Other Alcoholism Anxiety Surgical History History of tonsillectomy History of wisdom tooth extraction Social History adopted: Yes (at age 5) Smoking Status: Never smoker alcohol intake: current alcohol intake frequency: a few times a month ROS ROS ED ROS Narrative Constitutional: No fever, no chills. HEENT: No sore throat. No neck pain. No loss of vision. No rhinorrhea. Cardiovascular: No chest pain. No palpitations. No pedal edema. Respiratory: No cough, no shortness of breath. Abdominal: No abdominal pain. Positive nausea. Positive vomiting. Positive diarrhea Genitourinary: No dysuria. No hematuria. Musculoskeletal: No myalgias. No arthralgias. Neurologic: No headaches. No dizziness. No lightheadedness. Skin: No rash. No change in color. Psychiatric: No depression. No anxiety. EXAM Physical Exam Narrative Exam Narrative: Afebrile. Vital signs noted. HEENT: Normocephalic. Atraumatic. PERRL, EOMI. Neck soft and supple. No point tenderness or step off. Cardiovascular: Regular rate and rhythm. No murmurs, rubs, or gallops appreciated. Respiratory: No tachypnea. Lungs clear to auscultation bilaterally. Gastrointestinal: Abdomen soft, nontender, with hypoactive bowel sounds. No rebound or guarding. section incision appears clean, dry, and intact without fluctuance or erythema. Neurological: Awake. Alert. Nonfocal, nonlateralizing. Skin: No rash. Normal color. No pallor. Musculoskeletal: No pedal edema. Full range of motion extremities. Const Vital Signs: 05/28/21 12:47 05/28/21 12:52 05/28/21 15:36 Temperature 97.7 F L 97.5 F L 99.3 F H Temperature Source Temporal Temporal Oral Pulse Rate 68 61 65 Respiratory Rate 14 Blood Pressure 119/77 128/82 H 128/78 H Blood Pressure Mean 91 97 94 Pulse Ox 97 99 99 Oxygen Delivery Method Room Air Room Air Room Air MDM MDM MDM Narrative Medical decision making narrative: Comprehensive work-up was pursued. Given her recent , I do feel that she would benefit from CT imaging instead of plain films. I will obtain basic laboratory work and check for dehydration. She was administered ondansetron 4 mg intravenously along with a normal saline bolus of 1 L. Patient has normal white count of 7.4. Hemoglobin stable at 10.4. Platelet count normal at 358. Electrolyte panel is grossly unremarkable, no evidence of dehydration. Alk phos slightly elevated 138 with a normal/low lipase of 52. CT of the abdomen and pelvis shows nonspecific fluid-filled and dilated endometrium status post . I do feel that this is normal postoperative changes. I am not clinically concerned for retained products of conception. She is not having any pain in her pelvic area. Additionally, they note colitis involving the hepatic flexure in the right ascending colon. Patient will be given a prescription for Zofran. I will discuss patient with Dr. Margaret burnham for gastroenterology as to if the patient should be taking antibiotics. He has not returned the page. I will send her home on Cipro and Flagyl. At this point in time, I feel she be discharged safely home with follow-up. Return instructions to the emergency department were reviewed. Disposition is discharged home in stable condition. Lab Data Attestation: I reviewed the patient's lab results. Labs: Laboratory Results - last 24 hr 05/28/21 05/28/21 13:27 13:27 WBC 7.4 RBC 4.01 L Hgb 10.4 L Hct 32.7 L MCV 81.5 MCH 25.9 L MCHC 31.8 L RDW Std Deviation 42.9 RDW Coeff of Chandana 14.5 Plt Count 358 MPV 9.1 Immature Gran % (Auto) 0.300 Neut % (Auto) 73.8 H Lymph % (Auto) 15.0 L [place] % (Auto) 7.3 Eos % (Auto) 2.8 Baso % (Auto) 0.8 Absolute Neuts (auto) 5.5 Absolute Lymphs (auto) 1.11 Nucleated RBC % 0 Sodium 136 Potassium 4.2 Chloride 100 Carbon Dioxide 30.0 Anion Gap 6 BUN 15 Creatinine 0.82 Estim Creat Clear Calc 103.96 Est GFR (MDRD) Af Amer 108 Est GFR (MDRD) Non-Af 89 BUN/Creatinine Ratio 18.4 Glucose 115 H Calcium 9.2 Total Bilirubin 0.50 AST 16 ALT 25 Alkaline Phosphatase 138 H Total Protein 7.2 Albumin 3.1 L Globulin 4.1 Albumin/Globulin Ratio 0.8 L Lipase 52 L Radiography Diagnostic Testing: Clinical Impression(s) from Imaging Studies Abdomen/Pelvis CT 05/28/21 13:09 IMPRESSION: 1. Nonspecific fluid-filled and dilated endometrium status post . This may relate to normal postoperative changes. If clinical concerns for endometritis or retained products of conception, ultrasound can be obtained for further evaluation. 2. Colitis involving the right descending colon and hepatic flexure. Electronically Signed: Anthony Monroe, at 14:32 EDT , Discharge Plan Triage Chief Complaint: Nausea/Vomiting ED Provider: Norman Son Dx/Rx/DC Orders Clinical Impression: Nausea vomiting and diarrhea, Colitis Instructions: ED Understanding Colitis, ED Vomiting and Diarrhea ... Prescriptions: New ciprofloxacin HCl 500 mg tablet 500 mg PO BID Qty: 14 RF: 0 metronidazole 500 mg tablet 500 mg PO TID Qty: 21 RF: 0 ondansetron 4 mg tablet,disintegrating 4 mg PO Q6H PRN (Reason: nausea and vomiting) Qty: 14 RF: 0 No Action labetalol 200 mg Tablet 400 mg PO BID Qty: 60 RF: 0 oxycodone 5 mg Tablet 5 mg PO Q6H PRN PRN (Reason: Pain Score 4-10) 3 Days Qty: 3 RF: 0 ondansetron 4 mg tablet,disintegrating 4 mg PO Q6H PRN (Reason: nausea and vomiting) 30 Days Qty: 30 RF: 1 promethazine 12.5 mg tablet 12.5 mg PO Q6H PRN (Reason: nausea and vomiting) 30 Days Qty: 60 RF: 1 Primary Care Provider: Ernesto Dc Referrals: Ernesto Dc MD [Primary Care Provider] - 3-5 Days Fran Robles DO [STAFF PHYSICIAN] - 3-5 Days Disposition Disposition: Home, Self Care Discharge Date/Time: 05/28/21 15:42
[2021-05-28 13:31] LABS: Absolute Lymphocyte Count 1.11 X10^3/uL (0.83-4.51); Absolute Neutrophil Count 5.5 X10^3/uL (2.0-7.7); Basophil# 0.06 X10^3/uL; Basophil% 0.8 % (0-1); Eosinophil# 0.21 X10^3/uL; Eosinophils% 2.8 % (0-5); Hematocrit 32.7 % (37-47); Hemoglobin 10.4 g/dL (12.0-15.0); Lymphocyte # 1.11 X10^3/ul (0.83-4.51); Mean Corp Hgb Conc 31.8 g/dL (32-36); Mean Corpuscular Hgb 25.9 pg (27.0-32.0); Mean Corpuscular Volume 81.5 fL (81-99); Mean Platelet Vol. 9.1 fl (6.2-12.0); Monocyte# 0.54 X10^3/uL; Monocyte% 7.3 % (0-10); NRBC Flagged by Analyzer 0 % (0-5); Neutrophil # 5.46 X10^3/uL (2.7-7.7); Neutrophil % 73.8 % (47-70); Platelet Count 358 K/mm3 (150-450); RBC Distribution Width CV 14.5 % (11.6-14.6); RBC Distribution Width SD 42.9 fl (35.1-43.9); Red Blood Count 4.01 M/mm3 (4.2-5.4); White Blood Count 7.4 K/mm3 (4.4-11.0)
[2021-05-28] MEDS: Ondansetron 4 MG/2 ML Vial IV (13:32)
[2021-05-28] MEDS: 0.9% Normal Saline 1,000 ML 1000 ML IV (13:32)
[2021-05-28 13:48] LABS: ALB/GLOB Ratio 0.8 RATIO (0.9-2.4); AST(SGOT) 16 U/L (15-37); Alanine Aminotransfer ALT/SGPT 25 U/L (13-56); Albumin, Serum 3.1 g/dL (3.2-5.0); Alkaline Phosphatase 138 U/L (45-117); Anion Gap 6 (5-15); BUN 15 mg/dL (7-18); BUN/Creat Ratio 18.4 RATIO (10-20); Calcium,Total 9.2 mg/dL (8.5-10.1); Chloride 100 mmol/L (98-107); Creatinine, Serum 0.82 mg/dL (0.55-1.02); EST Glomerular Filtration Rate 89 mL/min (>60); Est Glom Filt Rate - Afr Amer 108 mL/min (>60); Estimated Creatinine Clearance 103.96 ml/min; Globulin 4.1 g/dL (2.2-4.2); Glucose 115 mg/dL (74-106); Lipase 52 U/L (73-393); Potassium 4.2 mmol/L (3.5-5.1); Protein, Total 7.2 g/dL (6.4-8.2); Sodium Level 136 mmol/L (136-145)
[2021-05-28 15:36] VITALS: BP 128/78; PULSE 62; PULSE 65; TEMP 37.4; O2SAT 98; O2SAT 99
== END 2021-05-28 15:42 | disposition home or self-care (01) ==
PROVIDERS: Emergency Provider Emergency Medicine; PCP Family Medicine; Visit Provider Emergency Medicine
DX: K52.9 Noninfective gastroenteritis and colitis, unspecified (principal); R11.2 Nausea with vomiting, unspecified; R19.7 Diarrhea, unspecified
CPT/HCPCS: 74177; 80053; 83690; 85025; 96361; 96374; 99285; J7030; Q9967; J2405

== ENCOUNTER 2021-06-05 09:37 | Outpatient (CLI) | payer BC, SELFPAY ==
--- NOTE | 2021-06-05 10:44 | RAD_ITS ---
STUDY: AP SUPINE ABDOMEN AND PELVIS X-RAY--2 VIEWS OF 1049 HOURS ON 06/05/2021 REASON FOR EXAM: 26-year-old female with right upper quadrant pain. TECHNIQUE: A 2 view AP supine abdomen and pelvis x-ray series was performed per protocol. COMPARISON: None. FINDINGS: Normal visualized lung bases. Mild constipation is suggested.. There is no demonstrated free abdominal air. There are no calcifications or calculi in the region of the gallbladder, kidneys, or ureters. The visualized liver, spleen and kidneys are grossly normal in size and morphology. There is a Joe''s lobe of the liver. Normal soft tissue structures. Normal osseous structures. RAD/Abdomen Single View IMPRESSION: 1. No calcifications or calculi in the region of the gallbladder, kidneys, ureters. 2. Suggestion of mild constipation. 3. Suggestion of a Joe''s lobe liver. Otherwise, there is no organomegaly. 4. Normal osseous structures. 5. Normal lung bases. Electronically Signed: Jorge Diaz MD at 18:03 EDT ,
[2021-06-05 12:07] LABS: Absolute Lymphocyte Count 1.59 X10^3/uL (0.83-4.51); Absolute Neutrophil Count 3.3 X10^3/uL (2.0-7.7); Basophil# 0.09 X10^3/uL; Basophil% 1.5 % (0-1); Eosinophil# 0.37 X10^3/uL; Eosinophils% 6.2 % (0-5); Hematocrit 37.2 % (37-47); Hemoglobin 11.4 g/dL (12.0-15.0); Lymphocyte # 1.59 X10^3/ul (0.83-4.51); Lymphocyte % 26.5 % (19-41); Mean Corp Hgb Conc 30.6 g/dL (32-36); Mean Corpuscular Hgb 25.3 pg (27.0-32.0); Mean Corpuscular Volume 82.7 fL (81-99); Mean Platelet Vol. 9.7 fl (6.2-12.0); Monocyte# 0.65 X10^3/uL; Monocyte% 10.9 % (0-10); NRBC Flagged by Analyzer 0 % (0-5); Neutrophil # 3.28 X10^3/uL (2.7-7.7); Neutrophil % 54.7 % (47-70); Platelet Count 448 K/mm3 (150-450); RBC Distribution Width CV 14.5 % (11.6-14.6); RBC Distribution Width SD 43.7 fl (35.1-43.9)
[2021-06-05 12:18] LABS: ALB/GLOB Ratio 0.8 RATIO (0.9-2.4); AST(SGOT) 21 U/L (15-37); Alanine Aminotransfer ALT/SGPT 33 U/L (13-56); Albumin, Serum 3.5 g/dL (3.2-5.0); Alkaline Phosphatase 153 U/L (45-117); Amylase 45 U/L (25-115); Anion Gap 7 (5-15); BUN 17 mg/dL (7-18); BUN/Creat Ratio 18.1 RATIO (10-20); Calcium,Total 9.4 mg/dL (8.5-10.1); Chloride 103 mmol/L (98-107); Creatinine, Serum 0.94 mg/dL (0.55-1.02); EST Glomerular Filtration Rate 76 mL/min (>60); Est Glom Filt Rate - Afr Amer 92 mL/min (>60); Globulin 4.3 g/dL (2.2-4.2); Glucose 111 mg/dL (74-106); Lipase 54 U/L (73-393); Protein, Total 7.8 g/dL (6.4-8.2); Sodium Level 136 mmol/L (136-145)
== END 2021-06-05 23:59 | disposition home or self-care (01) ==
PROVIDERS: PCP Family Medicine; Referring Provider Nurse Practitioner Family; Visit Provider Nurse Practitioner Family
DX: R10.11 Right upper quadrant pain (principal)
CPT/HCPCS: 36415; 74018; 80053; 82150; 83690; 85025

== ENCOUNTER 2021-06-10 10:39 | Outpatient (CLI) | payer BC, SELFPAY ==
--- NOTE | 2021-06-10 10:47 | US_ITS ---
STUDY: ABDOMINAL ULTRASOUND - RIGHT UPPER QUADRANT REASON FOR VISIT: Female, 26 years old RUQ PAIN TECHNIQUE: Ultrasound evaluation of the right upper quadrant was performed with real-time and static baltazar-scale imaging. TECHNICAL QUALITY: Adequate. COMPARISON: None. FINDINGS: Liver: The liver is mildly enlarged and measures 18 cm. There is normal echogenicity of the liver. The bile ducts are within normal limits. There is hepatic color flow. The direction of portal flow is hepatopetal. There is no demonstrated mass lesion. Gallbladder: Normal distended gallbladder. The gallbladder wall measures 1.7 mm. There is a negative sonographic Wu''s sign. There is no pericholecystic fluid. There are no gallstones. Common Bile Duct (C.B.D.): The common bile duct measures 4.0 mm. Pancreas: Normal size of the head, body and tail of the pancreas. There is normal echogenicity of the pancreas. There is a 2.1 cm x 2.2 cm x 0.8 cm hypoechoic solid nodule in the region of the head of the pancreas. This may represent a small lymph node. This was not well-seen on prior CT scan dated 06/05/2021. Right Kidney: Normal size of the right kidney. The right kidney measures 7.5 cm x 5.4 cm x 4.2 cm. Normal renal cortex. The right cortex measures 1.2 cm. There is no demonstrated renal mass or cyst. There is no right hydronephrosis. US/Abdomen Limited IMPRESSION: Findings suggestive of a 2.1 cm x 2.2 cm x 0.7 hypoechoic solid nodule in the region of the pancreas. This most likely represents a small peripancreatic lymph node. Follow-up examination in 3 months is recommended. Electronically Signed: Manuel Stubbs MD at 12:35 EDT ,
== END 2021-06-10 23:59 | disposition home or self-care (01) ==
PROVIDERS: PCP Family Medicine; Visit Provider Nurse Practitioner Family
DX: R10.11 Right upper quadrant pain (principal)
CPT/HCPCS: 76705

== ENCOUNTER 2021-06-19 09:58 | Outpatient (CLI) | payer BC, SELFPAY ==
--- NOTE | 2021-06-19 10:08 | NM_ITS ---
CLINICAL: 26-year-old female with reported history of right upper quadrant abdominal pain. RADIONUCLIDE HEPATOBILIARY SCINTIGRAPHY COMPARISON: Abdominal ultrasound report 06/10/2021 FINDINGS: Following the intravenous administration of 5.2 mCi of 99m Tc Mebrofenin, hepatobiliary images reveal: 1. Relatively prompt and homogeneous radiopharmaceutical concentration is noted by a normal sized liver. No parenchymal defects are identified. 2. Gallbladder activity is identified at 10 minutes post radiopharmaceutical administration. 3. Small intestinal tract is observed at 15 minutes following tracer injection. 4. Washout of the radiopharmaceutical by the hepatic parenchyma appears qualitatively normal. 5. There is demonstrated duodenal-gastric reflux. NM/Hepatobilliary Imaging IMPRESSION: 1. Visualization of the gallbladder within 60 minutes post radiopharmaceutical administration excludes acute cholecystitis with 97% certitude. (Samson et al, Nucl Med [employer] pg. 35, 1981). 2. There is scintigraphic evidence of duodenal-gastric reflux as defined above. Electronically Signed: Alberto Gandhi DO at 7:09 EDT ,
== END 2021-06-19 23:59 | disposition home or self-care (01) ==
PROVIDERS: PCP Family Medicine; Visit Provider Family Medicine
DX: K82.8 Other specified diseases of gallbladder (principal)
CPT/HCPCS: 78226; A9537

== ENCOUNTER 2021-06-30 08:45 | Outpatient (CLI) | payer BC, SELFPAY ==
[2021-06-30 12:14] LABS: Glucose 2 Hour Postprandial 135 mg/dL (<140)
== END 2021-06-30 23:59 | disposition home or self-care (01) ==
LOC: WOBLAB 08:47
PROVIDERS: PCP Family Medicine; Visit Provider Obstetrics & Gynecology
DX: O24.419 Gestational diabetes mellitus in pregnancy, unspecified control (principal)
CPT/HCPCS: 36415; 82950

== ENCOUNTER → 2021-07-14 | Outpatient (CLI) | payer BC, SELFPAY ==
[2021-07-16 06:08] LABS: Chlamydia By Nucleic Acid AMP Negative (Negative)
[2021-07-16 09:52] LABS: Gonococcus By Nucleic Acid AMP Negative (Negative)
== END | disposition home or self-care (01) ==
LOC: LABSPEC 12:01
PROVIDERS: PCP Family Medicine; Visit Provider Obstetrics & Gynecology
DX: Z11.3 Encounter for screening for infections with a predominantly sexual mode of transmission (principal)
CPT/HCPCS: 87491; 87591

== ENCOUNTER → 2023-04-16 | Outpatient (CLI) | payer BC, SELFPAY ==
[2023-04-16 12:29] LABS: Absolute Lymphocyte Count 1.95 X10^3/uL (0.83-4.51); Absolute Neutrophil Count 5.2 X10^3/uL (2.0-7.7); Basophil# 0.09 X10^3/uL; Basophil% 1.1 % (0-1); Eosinophil# 0.48 X10^3/uL; Eosinophils% 5.7 % (0-5); Hematocrit 43.3 % (37-47); Hemoglobin 14.2 g/dL (12.0-15.0); Lymphocyte # 1.95 X10^3/ul (0.83-4.51); Lymphocyte % 23.3 % (19-41); Mean Corp Hgb Conc 32.8 g/dL (32-36); Mean Corpuscular Volume 85.2 fL (81-99); Mean Platelet Vol. 9.8 fl (6.2-12.0); Monocyte% 7.2 % (0-10); NRBC Flagged by Analyzer 0 % (0-5); Neutrophil # 5.23 X10^3/uL (2.7-7.7); Neutrophil % 62.5 % (47-70); Platelet Count 320 K/mm3 (150-450); RBC Distribution Width CV 12.8 % (11.6-14.6); RBC Distribution Width SD 39.2 fl (35.1-43.9); Red Blood Count 5.08 M/mm3 (4.2-5.4); White Blood Count 8.4 K/mm3 (4.4-11.0)
[2023-04-16 13:00] LABS: ALB/GLOB Ratio 0.9 RATIO (0.9-2.4); AST(SGOT) 12 U/L (15-37); Alanine Aminotransfer ALT/SGPT 24 U/L (13-56); Albumin, Serum 3.2 g/dL (3.2-5.0); Alkaline Phosphatase 147 U/L (45-117); Anion Gap 1 (5-15); BUN 13 mg/dL (7-18); BUN/Creat Ratio 18.4 RATIO (10-20); Calcium,Total 8.9 mg/dL (8.5-10.1); Chloride 112 mmol/L (98-107); Cholesterol 207 mg/dL (200); Creatinine, Serum 0.71 mg/dL (0.55-1.02); EST Glomerular Filtration Rate 104 mL/min (>60); Est Glom Filt Rate - Afr Amer 126 mL/min (>60); Globulin 3.6 g/dL (2.2-4.2); Glucose 115 mg/dL (74-106); High Density Lipoprotein 31 mg/dL; Potassium 3.7 mmol/L (3.5-5.1); Protein, Total 6.8 g/dL (6.4-8.2); Sodium Level 140 mmol/L (136-145); Thyroid Stim Hormone (TSH) 1.93 uIU/mL (0.358-3.74); Triglycerides 282 mg/dL; Very Low Density Lipoprotein 56 mg/dL (5-40)
[2023-04-19 16:09] LABS: Thyroglobulin Antibody 93.3 IU/mL (0.0-0.9); Thyroid Peroxidase AB 286 IU/mL (0-34); Thyroid Stim Immunoglob 0.55 IU/L (0.00-0.55)
== END | disposition home or self-care (01) ==
LOC: MFPLAB 10:36
PROVIDERS: PCP Family Medicine; Visit Provider Family Medicine
DX: R73.09 Other abnormal glucose (principal); E66.01 Morbid (severe) obesity due to excess calories; E05.00 Thyrotoxicosis with diffuse goiter without thyrotoxic crisis or storm
CPT/HCPCS: 36415; 80053; 80061; 84439; 84443; 84445; 85025; 86376; 86800

== ENCOUNTER → 2023-08-20 | Outpatient (CLI) | payer BC, SELFPAY ==
[2023-08-20 12:17] LABS: Absolute Lymphocyte Count 2.22 X10^3/uL (0.83-4.51); Absolute Neutrophil Count 3.7 X10^3/uL (2.0-7.7); Basophil# 0.09 X10^3/uL; Basophil% 1.3 % (0-1); Eosinophil# 0.26 X10^3/uL; Eosinophils% 3.8 % (0-5); Hematocrit 43.6 % (37-47); Hemoglobin 14.3 g/dL (12.0-15.0); Lymphocyte # 2.22 X10^3/ul (0.83-4.51); Lymphocyte % 32.3 % (19-41); Mean Corp Hgb Conc 32.8 g/dL (32-36); Mean Corpuscular Hgb 27.9 pg (27.0-32.0); Mean Platelet Vol. 9.4 fl (6.2-12.0); Monocyte# 0.51 X10^3/uL; Monocyte% 7.4 % (0-10); NRBC Flagged by Analyzer 0 % (0-5); Neutrophil % 53.9 % (47-70); Platelet Count 330 K/mm3 (150-450); RBC Distribution Width CV 12.5 % (11.6-14.6); RBC Distribution Width SD 38.1 fl (35.1-43.9); Red Blood Count 5.13 M/mm3 (4.2-5.4); White Blood Count 6.9 K/mm3 (4.4-11.0)
[2023-08-20 12:46] LABS: ALB/GLOB Ratio 0.9 RATIO (0.9-2.4); AST(SGOT) 12 U/L (15-37); Alanine Aminotransfer ALT/SGPT 24 U/L (13-56); Albumin, Serum 3.5 g/dL (3.2-5.0); Alkaline Phosphatase 156 U/L (45-117); Anion Gap 6 (5-15); BUN 14 mg/dL (7-18); BUN/Creat Ratio 19.4 RATIO (10-20); Calcium,Total 9.9 mg/dL (8.5-10.1); Chloride 103 mmol/L (98-107); Cholesterol 206 mg/dL (200); Creatinine, Serum 0.72 mg/dL (0.55-1.02); EST Glomerular Filtration Rate 102 mL/min (>60); Est Glom Filt Rate - Afr Amer 123 mL/min (>60); Globulin 3.8 g/dL (2.2-4.2); Glucose 120 mg/dL (74-106); High Density Lipoprotein 38 mg/dL; Potassium 3.8 mmol/L (3.5-5.1); Protein, Total 7.3 g/dL (6.4-8.2); Sodium Level 136 mmol/L (136-145); T4 Free Direct 1.13 ng/dL (0.76-1.46); Triglycerides 122 mg/dL; Very Low Density Lipoprotein 24 mg/dL (5-40)
== END | disposition home or self-care (01) ==
LOC: MFPLAB 11:02
PROVIDERS: PCP Family Medicine; Visit Provider Family Medicine
DX: R73.02 Impaired glucose tolerance (oral) (principal); E06.3 Autoimmune thyroiditis
CPT/HCPCS: 36415; 80053; 80061; 83036; 84439; 84443; 85025

== ENCOUNTER → 2023-10-18 | Outpatient (CLI) | payer BC, SELFPAY ==
--- NOTE | 2023-10-18 17:49 | US_ITS ---
STUDY: THYROID ULTRASOUND REASON FOR EXAM: Female, 28 years old. Follow-up thyroid nodules. TECHNIQUE: Ultrasound evaluation of the thyroid was performed with real-time and static baltazar-scale imaging. COMPARISON: Comparison is made with prior ultrasound of the thyroid dated September 18, 2020. FINDINGS: RIGHT LOBE: The right lobe of the thyroid gland is enlarged and measures 6.1 cm x 2.8 cm x 2.5 cm. There is a heterogeneous echotexture. There are no demonstrated solid, cystic or complex lesions. LEFT LOBE: The left lobe of the thyroid gland is enlarged and measures 6.2 cm x 2.2 cm x 1.9 cm. There is a heterogeneous echotexture. There is a 9 mm x 10 mm x 6 mm hypoechoic solid nodule in the midpole of the left lobe. This is unchanged. ISTHMUS: The isthmus is enlarged and measures 9 mm. There is a stable 14 mm x 7 mm x 12 mm hypoechoic solid nodule in the left-sided the isthmus. Incidental note is made of a lymph node in the right cervical region measuring 2 cm x 0.8 cm x 0.5 cm. US/Thyroid IMPRESSION: Stable heterogeneous enlargement of both lobes of the thyroid gland with the stable hypoechoic solid nodule in the left lobe of the thyroid as well as in the left side of the isthmus. Electronically Signed: Manuel Stubbs MD at 12:57 EDT ,
--- NOTE | 2023-10-18 17:49 | CT_ITS ---
STUDY: CT ABDOMEN AND PELVIS WITH AND WITHOUT CONTRAST REASON FOR EXAM: Female, 28 years old. pancreatic mass. Weight gain. RADIATION DOSAGE (If Supplied By Facility): CTDIvol = ( 27.39 ) mGy, DLP = ( 2915.97 ) mGycm TECHNIQUE: Transaxial images were obtained from the dome of the diaphragm to the symphysis pubis with oral contrast. Oral and amp; IV Readi-CAT and amp; 100mL Isovue-370 was administered. Sagittal and coronal images were reconstructed. Individualized dose optimization techniques were used for this CT. COMPARISON: Comparison is made with prior study dated May 28, 2021. FINDINGS: The visualized lung bases are unremarkable. The visualized portions of the heart are within normal limits. There is decreased attenuation of the liver consistent with steatosis. Normal gallbladder and extrahepatic biliary system. Borderline splenomegaly. Normal pancreas. Normal bilateral adrenal glands. Normal right kidney. Normal left kidney. There is a small hiatal hernia. Normal small intestine. Normal colon. The appendix is visualized and appears normal. Normal abdominal aorta. Normal inferior vena cava. There is a small retroperitoneal lymphadenopathy with enlarged nodes no greater than 10mm in the short axis diameter. Normal urinary bladder. IUD is seen within the uterus. There is a 3.4 cm x 3 cm cyst in the right ovary. Normal abdominal wall. Normal osseous structures. CT/CT Abd/Pelvis W/WO Contrast IMPRESSION: Fatty infiltration of the liver. Borderline splenomegaly. Right ovarian cyst. IUD is seen within the pelvis. Electronically Signed: Manuel Stubbs MD at 12:55 EDT ,
== END | disposition home or self-care (01) ==
LOC: CT 17:47
PROVIDERS: PCP Family Medicine; Referring Provider Family Medicine; Visit Provider Family Medicine
DX: K86.89 Other specified diseases of pancreas (principal); E04.2 Nontoxic multinodular goiter
CPT/HCPCS: 74178; 76536; Q9967

== ENCOUNTER 2024-02-23 16:49 | Emergency (ER) | payer BC, SELFPAY ==
[2024-02-23 16:50] VITALS: BP 134/90; PULSE 82; RESP 18; TEMP 35.9; O2SAT 100; BMI 48.3
--- NOTE | 2024-02-23 19:26 | CT_ITS ---
INDICATION: umbilical infection/pain EXAMINATION: CT ABDOMEN AND PELVIS WITH CONTRAST - CT Abdomen And Pelvis W/ Contrast Injection TECHNIQUE: Helically acquired images were obtained of the abdomen and pelvis following IV contrast. A radiation dose optimization technique was used for this scan. IV Contrast dosage and agent: 100 cc Isovue-370 Oral contrast: None. COMPARISON: 10/18/2023 FINDINGS: LOWER CHEST: Lung bases are clear. No cardiomegaly or pericardial effusion. LIVER: Homogeneous. No focal mass. GALLBLADDER AND BILIARY TREE: No calcified gallstones. No gallbladder distension or wall edema. No intra- or extrahepatic biliary ductal dilation. PANCREAS: No focal cystic or solid mass. SPLEEN: Splenomegaly. ADRENAL GLANDS: No nodules. KIDNEYS AND URETERS: Uniform enhancement. No hydronephrosis. PERITONEUM: No ascites or free air. BOWEL: Normal appendix. No stomach or bowel distension. No focal inflammatory change. LYMPH NODES: No enlarged mesenteric or retroperitoneal lymph nodes. VESSELS: Aorta is non-dilated. URINARY BLADDER: Unremarkable. REPRODUCTIVE ORGANS: No pelvic masses. Stable 3.7 cm right ovarian cyst. ABDOMINAL WALL: No discrete abdominal or pelvic wall hernia. No abnormal ventral abdominal wall fluid collections. BONES: Unremarkable. CT/Abdomen/Pelvis W IV Cont ONLY IMPRESSION: No acute findings in the abdomen or pelvis. Stable 3.7 cm right ovarian cyst. Electronically Signed: Claude Rizo MD at 22:12 EST ,
--- NOTE | 2024-02-23 19:27 | ED.VIS.GI ---
HPI HPI - GI History of Present Illness Chief Complaint: Abd Pain Informant: patient Narrative Narrative: 28-year-old female 3 days of periumbilical pain and no other associated symptoms such as nausea, vomiting, diarrhea, cramping, fevers or chills. She states it feels like it is right at her bellybutton. She went to her doctor and there was no discharge. She went to urgent care and there was no discharge. She states just since she has arrived here after being referred here to get a CT scan, now there is some spontaneous scant amount of discharge from the umbilicus. [facility] Medical History delivery due to maternal disorder Preeclampsia PCOS (polycystic ovarian syndrome) Thyroiditis, autoimmune Thyroid disease Migraine UTI (urinary tract infection) Seasonal allergies GERD (gastroesophageal reflux disease) Graves disease Multiple thyroid nodules Home Medications ?Medication ?Instructions ?Recorded ?Last Taken ?Type clotrimazole 1 % topical ointment 1 applic topical BID 2 weeks #56.7 02/23/24 Unknown Rx grams escitalopram oxalate 20 mg tablet 20 mg PO DAILY 02/23/24 Unknown History mupirocin 2 % topical ointment 1 applic topical BID 10 days #15 02/23/24 Unknown Rx grams semaglutide (weight loss) 0.25 1.7 mg subcut .1x/week 02/23/24 Unknown History mg/0.5 mL subcutaneous pen injector (Wegovy) Allergy/AdvReac Type Severity Reaction Status Date / Time shellfish derived Allergy Severe throat Verified 02/23/24 16:50 closing sulfamethoxazole (From Allergy Severe throat Verified 02/23/24 16:50 Bactrim) closing trimethoprim (From Bactrim) Allergy Severe throat Verified 02/23/24 16:50 closing animal dander Allergy Mild ITCHY Verified 02/23/24 16:50 EYES, RUNNY NOSE Family History Mother Diabetes Other Alcoholism Anxiety Surgical History History of tonsillectomy History of wisdom tooth extraction Social History adopted: Yes (at age 5) Smoking Status: Never smoker alcohol intake: current alcohol intake frequency: a few times a month ROS ROS ED Constitutional Constitutional ED: Denies chills or fever(s) Eyes Eyes: Denies change in vision or diplopia ENT ENT ED: Denies rhinorrhea or sore throat Cardiovascular Cardiovascular: Denies chest pain or palpitations Respiratory/Chest Respiratory/Chest: Denies cough or dyspnea Gastrointestinal Gastrointestinal: Reports abdominal pain; Denies diarrhea, nausea or vomiting Genitourinary Genitourinary ED: Denies dysuria or hematuria Musculoskeletal Musculoskeletal: Denies back pain or neck pain Integumentary Denies rash Neurologic Neurologic: Denies headache(s), paresthesias or weakness Psychiatric Psychiatric: Denies anxiety or suicidal thoughts EXAM Physical Exam Const Vital Signs: 02/23/24 16:50 02/23/24 19:42 Temperature 96.6 F L Temperature Source Temporal Pulse Rate 82 71 Respiratory Rate 18 18 Blood Pressure 134/90 H 150/86 H Blood Pressure Mean 104 107 Pulse Ox 100 100 Oxygen Delivery Method Room Air Room Air Positive well nourished and well developed General Appearance ED: well developed and NAD HEENT Reports moist mucous membranes normocephalic and atraumatic Eyes PERRL and EOMs intact bilaterally Neck full ROM and supple Resp normal respiratory effort and clear to auscultation bilaterally Cardio regular rate, regular rhythm and no murmurs GI non-distended GI Narrative: Obese abdomen. Scant amount of dried discharge that may have been pus or may have been serosanguineous at the umbilicus. Palpating the umbilicus is tender I cannot palpate the bottom of it. No palpable hernias in or around it, but the whole surrounding area is tender. The abdominal wall is otherwise normal-appearing without any erythema, peau d'orange appearance, or other rashes or skin changes. Auscultation: normoactive bowel sounds Palpation: soft Back/Spine no CVA tenderness General Back: other FROM Extremity normal to inspection General Extremety ED: Negative for edema, pulses abnormal or tenderness General Extremity: Negative for edema or pulses abnormal Neuro oriented x3, CN's II-XII intact bilaterally and no sensory deficits noted Sensorium / Orientation: awake and alert Motor Exam: strength 5/5 throughout Skin no rashes or lesions noted and no wounds MDM MDM MDM Narrative Medical decision making narrative: I think CT reasonable to assess for an abdominal wall collection. My suspicion for an intra-abdominal process is low. However if she does have an abdominal wall collection that would change the treatment versus if she does not. Labs are normal and on my interpretation, the CT shows no collection in the abdominal wall. Therefore I am going to treat her topically for both bacterial and candidal etiologies, given the risk of this potentially being yeast, but also having pain suggestive of bacterial etiology. Lab Data Attestation: I reviewed the patient's lab results. Labs: Laboratory Results - last 24 hr 02/23/24 19:41 WBC 10.7 RBC 5.09 Hgb 14.4 Hct 42.7 MCV 83.9 MCH 28.3 MCHC 33.7 RDW Std Deviation 38.1 RDW Coeff of Chandana 12.6 Plt Count 308 MPV 9.8 Immature Gran % (Auto) 0.400 Neut % (Auto) 63.9 Lymph % (Auto) 26.2 [place] % (Auto) 6.0 Eos % (Auto) 2.7 Baso % (Auto) 0.8 Absolute Neuts (auto) 6.8 Absolute Lymphs (auto) 2.81 Nucleated RBC % 0 Sodium 139 Potassium 3.4 L Chloride 106 Carbon Dioxide 26.0 Anion Gap 7 BUN 14 Creatinine 0.70 Estim Creat Clear Calc 179.78 Est GFR (MDRD) Af Amer 126 Est GFR (MDRD) Non-Af 104 BUN/Creatinine Ratio 20.0 Glucose 85 Calcium 8.9 Serum , Qual NEGATIVE Discharge Plan Triage Chief Complaint: Abd Pain ED Provider: Terrence Danielle Dx/Rx/DC Orders Clinical Impression: Cellulitis, umbilical Instructions: ED Cellulitis, ED Fungal Skin Infection (Tinea) Prescriptions: New mupirocin 2 % ointment 1 applic topical BID 10 Days Qty: 15 0RF clotrimazole 1 % ointment 1 applic topical BID 14 Days Qty: 56.7 0RF No Action escitalopram oxalate 20 mg tablet 20 mg PO DAILY Wegovy 0.25 mg/0.5 mL pen injector 1.7 mg subcut .1x/week Primary Care Provider: Ernesto Dc Referrals: Ernesto Dc MD [Primary Care Provider] - 1 Week if not improving Activity Restrictions/Additional Instructions: Keep your navel dry. Gently use Q-tips if necessary. After making sure it is dry, then apply the ointments. Print Language: Polish Disposition Disposition: Home, Self Care
[2024-02-23 19:42] VITALS: BP 150/86; PULSE 71; RESP 18; O2SAT 100
[2024-02-23 19:58] LABS: Absolute Lymphocyte Count 2.81 X10^3/uL (0.83-4.51); Absolute Neutrophil Count 6.8 X10^3/uL (2.0-7.7); Basophil# 0.09 X10^3/uL; Basophil% 0.8 % (0-1); Eosinophil# 0.29 X10^3/uL; Eosinophils% 2.7 % (0-5); Hematocrit 42.7 % (37-47); Hemoglobin 14.4 g/dL (12.0-15.0); Lymphocyte # 2.81 X10^3/ul (0.83-4.51); Lymphocyte % 26.2 % (19-41); Mean Corp Hgb Conc 33.7 g/dL (32-36); Mean Corpuscular Hgb 28.3 pg (27.0-32.0); Mean Corpuscular Volume 83.9 fL (81-99); Mean Platelet Vol. 9.8 fl (6.2-12.0); Monocyte# 0.64 X10^3/uL; NRBC Flagged by Analyzer 0 % (0-5); Neutrophil # 6.84 X10^3/uL (2.7-7.7); Neutrophil % 63.9 % (47-70); Platelet Count 308 K/mm3 (150-450); RBC Distribution Width CV 12.6 % (11.6-14.6); RBC Distribution Width SD 38.1 fl (35.1-43.9); Red Blood Count 5.09 M/mm3 (4.2-5.4); White Blood Count 10.7 K/mm3 (4.4-11.0)
[2024-02-23 20:04] LABS: Internal QC Validated? YES +Cl - CLEAR BKGD; Pregnancy, Serum, hCG Quali. NEGATIVE Negative
[2024-02-23 20:07] LABS: Anion Gap 7 (5-15); BUN 14 mg/dL (7-18); Calcium,Total 8.9 mg/dL (8.5-10.1); Chloride 106 mmol/L (98-107); EST Glomerular Filtration Rate 104 mL/min (>60); Est Glom Filt Rate - Afr Amer 126 mL/min (>60); Estimated Creatinine Clearance 179.78 ml/min; Glucose 85 mg/dL (74-106); Potassium 3.4 mmol/L (3.5-5.1); Sodium Level 139 mmol/L (136-145)
[2024-02-23 20:39] VITALS: BP 152/98; PULSE 78; RESP 14; TEMP 36.6; O2SAT 98
== END 2024-02-23 20:44 | disposition home or self-care (01) ==
PROVIDERS: Emergency Provider Emergency Medicine; PCP Family Medicine; Referring Provider Emergency Medicine; Visit Provider Emergency Medicine
DX: L03.316 Cellulitis of umbilicus (principal); E28.2 Polycystic ovarian syndrome; Z88.2 Allergy status to sulfonamides; Z88.1 Allergy status to other antibiotic agents
CPT/HCPCS: 74177; 80048; 84703; 85025; 99283; Q9967; A4216

== ENCOUNTER → 2024-09-08 | Outpatient (CLI) | payer BC, SELFPAY ==
[2024-09-08 15:01] LABS: Absolute Lymphocyte Count 1.82 X10^3/uL (0.83-4.51); Absolute Neutrophil Count 3.6 X10^3/uL (2.0-7.7); Basophil% 1.6 % (0-1); Eosinophil# 0.38 X10^3/uL; Hematocrit 39.7 % (37-47); Hemoglobin 13.2 g/dL (12.0-15.0); Lymphocyte # 1.82 X10^3/ul (0.83-4.51); Lymphocyte % 28.6 % (19-41); Mean Corp Hgb Conc 33.2 g/dL (32-36); Mean Corpuscular Hgb 28.1 pg (27.0-32.0); Mean Corpuscular Volume 84.5 fL (81-99); Mean Platelet Vol. 10.3 fl (6.2-12.0); Monocyte# 0.42 X10^3/uL; Monocyte% 6.6 % (0-10); NRBC Flagged by Analyzer 0 % (0-5); Neutrophil # 3.64 X10^3/uL (2.7-7.7); Platelet Count 314 K/mm3 (150-450); RBC Distribution Width CV 12.7 % (11.6-14.6); RBC Distribution Width SD 38.8 fl (35.1-43.9); White Blood Count 6.4 K/mm3 (4.4-11.0)
[2024-09-08 15:15] LABS: Hemoglobin A1c 5.6 % (<=5.6)
[2024-09-08 15:46] LABS: ALB/GLOB Ratio 1.4 RATIO (0.9-2.4); AST(SGOT) 14 U/L (<=31); Alanine Aminotransfer ALT/SGPT 17 U/L (<=34); Albumin, Serum 3.8 g/dL (3.5-5.0); Alkaline Phosphatase 120 U/L (35-104); Anion Gap 11 (5-15); BUN 14 mg/dL (4-19); BUN/Creat Ratio 19.8 RATIO (10-20); Carbon Dioxide 21.9 mmol/L (21.0-32.0); Chloride 107 mmol/L (98-108); Creatinine, Serum 0.72 mg/dL (0.70-1.20); EST Glomerular Filtration Rate 115 (>60); Globulin 2.8 g/dL (2.2-4.2); Glucose 134 mg/dL (70-99); Potassium 3.7 mmol/L (3.3-5.1); Protein, Total 6.7 g/dL (5.9-8.4); Sodium Level 140 mmol/L (133-145); Total Bilirubin 0.58 mg/dL (0.00-1.30)
== END | disposition home or self-care (01) ==
LOC: MTLAB 11:15
PROVIDERS: PCP Family Medicine; Referring Provider Family Medicine; Visit Provider Family Medicine
DX: E06.3 Autoimmune thyroiditis (principal); R73.02 Impaired glucose tolerance (oral)
CPT/HCPCS: 36415; 80053; 83036; 84439; 84443; 85025

== ENCOUNTER → 2025-03-09 | Outpatient (CLI) | payer BC, SELFPAY ==
[2025-03-13 21:07] LABS: HPV APTIMA, High Risk Positive (Negative); HPV Genotype 16, Aptima Negative (Negative); HPV Genotype 18,45 Aptima Positive (Negative)
== END | disposition home or self-care (01) ==
PROVIDERS: PCP Family Medicine; Referring Provider Nurse Practitioner Women's Health; Visit Provider Nurse Practitioner Women's Health
DX: Z12.4 Encounter for screening for malignant neoplasm of cervix (principal)
CPT/HCPCS: 87624; 88175; G0145